=== PATIENT | female | born 1965 | race Caucasian/White ===

== ENCOUNTER → 2017-04-27 | Outpatient (CLI) | payer OTHER ==
[2015-05-17 17:24] VITALS: BP 156/82
--- NOTE | 2017-04-27 12:25 | RAD ---
DATE: 04/27/2017. EXAM: DIGITAL SCREEN BILAT W/CAD. HISTORY: Routine mammographic screening. COMPARISON: 01/27/2016, 01/19/2015, 03/04/2014. This study was interpreted with the benefit of Computerized Aided Detection (CAD). FINDINGS: The breast parenchyma is dense, which could reduce sensitivity of mammography. Breast parenchyma level density D.. The previously noted left inferior breast mass demonstrated to be a cyst has decreased in size consistent with a benign finding. A density just medial to it was previously obscured but appears stable. There are no suspicious masses, microcalcifications or architectural distortion. BI-RADS CATEGORY: 2 BENIGN FINDING(S). RECOMMENDED FOLLOW-UP: 12M 12 MONTH FOLLOW-UP. PQRS compliance statement: Patient information was entered into a reminder system with a target due date 04/27/2018 for the next mammogram. Mammography is a sensitive method for finding small breast cancers, but it does not detect them all and is not a substitute for careful clinical examination. A negative mammogram does not negate a clinically suspicious finding and should not result in delay in biopsying a clinically suspicious abnormality. "Our facility is accredited by the [employer] Mammography [employer]."
== END | disposition home or self-care (01) ==
LOC: MAMMO 08:02
PROVIDERS: ATTEND Obstetrics & Gynecology
DX: Z12.31 Encounter for screening mammogram for malignant neoplasm of breast (principal); Z01.419 Encounter for gynecological examination (general) (routine) without abnormal findings; N63.0 Unspecified lump in unspecified breast
CPT/HCPCS: G0202; 77067

== ENCOUNTER 2017-11-09 18:34 | Emergency (ER) | payer OTHER ==
[2017-11-09 19:10] LABS: ADD MAN DIFF? NO
[2017-11-09 19:12] LABS: BASO # 0.1 x10^3/uL (0.0-0.2); BASO % 1 % (0-3); EOS # 0.1 x10^3/uL (0.0-0.7); EOS % 1 % (0-3); HEMATOCRIT 43.2 % (36.0-47.0); HEMOGLOBIN 14.9 g/dL (12.0-15.5); LYMPH # 2.3 x10^3/uL (1.0-4.8); LYMPH % 25 % (24-48); MEAN CORPUSCULAR HEMOGLOBIN 31 pg (25-35); MEAN CORPUSCULAR HGB CONC 35 g/dL (31-37); MEAN CORPUSCULAR VOLUME 89 fL (79-100); MONO # 0.6 x10^3/uL (0.0-1.1); MONO % 6 % (0-9); NEUT % 67 % (31-73); PLATELET COUNT 220 x10^3/uL (140-400); RED BLOOD COUNT 4.83 x10^6/uL (3.50-5.40); RED CELL DISTRIBUTION WIDTH 13.4 % (11.5-14.5)
[2017-11-09 19:15] LABS: BILIRUBIN,URINE NEGATIVE (NEG); CLARITY,URINE CLEAR; COLOR,URINE YELLOW; GLUCOSE,URINE NEGATIVE (NEG); NITRITE,URINE NEGATIVE (NEG); PROTEIN,URINE NEGATIVE (NEG-TRACE); UROBILINOGEN,URINE 0.2 mg/dL (0.2 mg/dL)
[2017-11-09 19:17] LABS: BACTERIA,URINE 0 /HPF (0-FEW); SQUAMOUS EPITHELIAL CELL,UR FEW /LPF; WBC,URINE OCC /HPF (0-4)
[2017-11-09 19:20] LABS: BARBITURATES NEG (NEG); BENZODIAZEPINES NEG (NEG); CANNABINOIDS NEG (NEG); COCAINE NEG (NEG); METHADONE NEG (NEG); OPIATES POS (NEG); PHENCYCLIDINE NEG (NEG)
[2017-11-09 19:21] LABS: AMPHETAMINE/METHAMPHETAMINE NEG (NEG); ETHANOL, URINE NEG (NEG)
[2017-11-09] MEDS: IV NORMAL SALINE 1000ML BAG 1,000 ML IV (19:21)
[2017-11-09 19:22] LABS: ANION GAP 9 (6-14); BLOOD UREA NITROGEN 12 mg/dL (7-20); BUN/CREATININE RATIO 15 (6-20); CALCIUM 8.4 mg/dL (8.5-10.1); CARBON DIOXIDE 29 mmol/L (21-32); CHLORIDE 103 mmol/L (98-107); CREATININE 0.8 mg/dL (0.6-1.0); GLUCOSE 91 mg/dL (70-99); POTASSIUM 3.4 mmol/L (3.5-5.1); SODIUM 141 mmol/L (136-145)
[2017-11-09] MEDS: MORPHINE SULFATE 4 MG/ML DISP.SYRIN. IV (19:22)
[2017-11-09] MEDS: ONDANSETRON PF 4 MG/2 ML VIAL. IV (19:22)
[2017-11-09 19:24] LABS: ETHANOL < 10 mg/dL (0-10)
[2017-11-09 19:30] LABS: ALBUMIN/GLOBULIN RATIO 1.1 (1.0-1.7); ALK PHOS 88 U/L (46-116); ALT (SGPT) 25 U/L (14-59); AST (SGOT) 21 U/L (15-37); LIPASE 84 U/L (73-393); TOTAL BILIRUBIN 0.5 mg/dL (0.2-1.0); TOTAL PROTEIN 7.8 g/dL (6.4-8.2)
[2017-11-09] MEDS: MORPHINE SULFATE 2 MG/ML DISP.SYRIN. IV (21:00)
[2017-11-09] MEDS: KETOROLAC 30 MG/ML INJ. IV (21:35)
[2017-11-09] MEDS: KETOROLAC 60 MG/2 ML INJ. IM (21:51)
== END 2017-11-09 22:10 | disposition home or self-care (01) ==
LOC: ER 18:34
DX: N20.0 Calculus of kidney (principal); Z87.442 Personal history of urinary calculi; Z90.710 Acquired absence of both cervix and uterus; Z90.721 Acquired absence of ovaries, unilateral; Z88.2 Allergy status to sulfonamides
CPT/HCPCS: 36415; 74176; 76830; 76856; 80053; 80307; 81001; 83690; 85025; 96372; 96374; 96375; 99285-25; G0480; J1885; J2270; J2405; J7030

== ENCOUNTER → 2018-04-30 | Outpatient (CLI) | payer OTHER ==
[2017-11-09 20:30] VITALS: BP 178/83
[~2018-04-30] MED LIST: OXYC-323 PO
--- NOTE | 2018-04-30 08:51 | RAD ---
DATE: 04/30/2018 EXAM: MAMMO CHUNG SCREENING BILATERAL HISTORY: Routine screening COMPARISON: 04/27/2017 This study was interpreted with the benefit of Computerized Aided Detection (CAD). Breast Density: HETERO The breast parenchyma is heterogenously dense, which could reduce sensitivity of mammography. Breast parenchyma level C. FINDINGS: 2-D and 3-D tomosynthesis imaging was performed in CC and MLO projections. A known cyst in the lateral aspect left breast has decreased in size. There are couple of other small smooth nodules in the left breast which are presumably cysts. These are better visualized on the current 3-D images than on the previous CT exam. No spiculated mass or architectural distortion is evident. No suspicious microcalcifications have developed. IMPRESSION: There is no mammographic evidence of malignancy in either breast. BI-RADS CATEGORY: 2 BENIGN FINDING(S) RECOMMENDED FOLLOW-UP: 12M 12 MONTH FOLLOW-UP PQRS compliance statement: Patient information was entered into a reminder system with a target due date for the next mammogram. Mammography is a sensitive method for finding small breast cancers, but it does not detect them all and is not a substitute for careful clinical examination. A negative mammogram does not negate a clinically suspicious finding and should not result in delay in biopsying a clinically suspicious abnormality. "Our facility is accredited by the [employer]ammography [employer]."
== END | disposition home or self-care (01) ==
LOC: MAMMO 08:04
PROVIDERS: ATTEND Obstetrics & Gynecology
DX: Z12.31 Encounter for screening mammogram for malignant neoplasm of breast (principal)
CPT/HCPCS: 77063; 77067

== ENCOUNTER → 2019-03-12 | Outpatient (CLI) | payer OTHER ==
[2017-11-09 20:30] VITALS: BP 178/83
[~2019-03-12] MED LIST changes: -OXYC-323 PO; +OXYC1TAB15 PO
[2019-03-12 16:22] LABS: BASO # 0.1 x10^3/uL (0.0-0.2); BASO % 1 % (0-3); EOS # 0.2 x10^3/uL (0.0-0.7); EOS % 2 % (0-3); HEMATOCRIT 39.8 % (36.0-47.0); HEMOGLOBIN 13.2 g/dL (12.0-15.5); LYMPH % 26 % (24-48); MEAN CORPUSCULAR HEMOGLOBIN 30 pg (25-35); MEAN CORPUSCULAR HGB CONC 33 g/dL (31-37); MEAN CORPUSCULAR VOLUME 89 fL (79-100); MONO # 0.6 x10^3/uL (0.0-1.1); MONO % 7 % (0-9); NEUT % 64 % (31-73); PLATELET COUNT 203 x10^3/uL (140-400); RED BLOOD COUNT 4.46 x10^6/uL (3.50-5.40); RED CELL DISTRIBUTION WIDTH 13.2 % (11.5-14.5); WHITE BLOOD COUNT 7.9 x10^3/uL (4.0-11.0)
== END | disposition home or self-care (01) ==
LOC: LAB 15:51
PROVIDERS: ATTEND Internal Medicine
DX: B34.9 Viral infection, unspecified (principal); R10.9 Unspecified abdominal pain
CPT/HCPCS: 36415; 85025

== ENCOUNTER → 2019-05-16 | Outpatient (CLI) | payer OTHER ==
[2017-11-09 20:30] VITALS: BP 178/83
--- NOTE | 2019-05-17 10:36 | RAD ---
DATE: May 16, 2019 EXAM: MAMMO CHUNG SCREENING BILATERAL HISTORY: Screening study. History of left cysts. COMPARISON: 2016 and 2018 This study was interpreted with the benefit of Computerized Aided Detection (CAD). FINDINGS: Breast Density: HETERO The breast parenchyma is heterogenously dense, which could reduce sensitivity of mammography. Breast parenchyma level C.. There are no new dominant suspicious masses, suspicious microcalcifications or evidence of architectural distortion. Bilateral breast nodules consistent with cysts are stable. IMPRESSION: No mammographic indicators for malignancy. BI-RADS CATEGORY: 2 BENIGN FINDING RECOMMENDED FOLLOW-UP: 12M 12 MONTH FOLLOW-UP PQRS compliance statement: Patient information was entered into a reminder system with a target due date May 17, 2020 for the next mammogram. Mammography is a sensitive method for finding small breast cancers, but it does not detect them all and is not a substitute for careful clinical examination. A negative mammogram does not negate a clinically suspicious finding and should not result in delay in biopsying a clinically suspicious abnormality. "Our facility is accredited by the [employer] Mammography [employer]." The patient's breast density may affect the ability of mammography to detect breast cancer. There are 4 categories of breast density, A, B, C and D. Breast density A means that most of the breast tissue is replaced with adipose tissue and therefore is not dense. Breast density B means that the breast tissue is mildly dense and scattered. Breast density C means that the breast tissue is heterogeneously dense. Breast density D means that the breast tissue is very dense. Breast densities especially C and D may decrease the sensitivity of mammography to detect breast cancer. Therefore, the patient may benefit from 3-D breast mammography (3D breast tomography) as a part of their screening mammogram. Insurance may or may not pay for this additional imaging. The patient's breast density based on today's mammogram is category C.
== END | disposition home or self-care (01) ==
LOC: MAMMO 08:07
PROVIDERS: ATTEND Obstetrics & Gynecology
DX: Z12.31 Encounter for screening mammogram for malignant neoplasm of breast (principal); N63.20 Unspecified lump in the left breast, unspecified quadrant; N63.10 Unspecified lump in the right breast, unspecified quadrant
CPT/HCPCS: 77063; 77067

== ENCOUNTER → 2019-08-20 | Outpatient (CLI) | payer OTHER ==
[2017-11-09 20:30] VITALS: BP 178/83
[2019-08-20 09:04] LABS: BASO % 1 % (0-3); EOS # 0.2 x10^3/uL (0.0-0.7); EOS % 3 % (0-3); HEMATOCRIT 44.9 % (36.0-47.0); HEMOGLOBIN 14.7 g/dL (12.0-15.5); LYMPH % 31 % (24-48); MEAN CORPUSCULAR HEMOGLOBIN 29 pg (25-35); MEAN CORPUSCULAR HGB CONC 33 g/dL (31-37); MEAN CORPUSCULAR VOLUME 89 fL (79-100); MONO # 0.5 x10^3/uL (0.0-1.1); MONO % 7 % (0-9); NEUT # 3.8 x10^3/uL (1.8-7.7); NEUT % 59 % (31-73); PLATELET COUNT 219 x10^3/uL (140-400); RED BLOOD COUNT 5.04 x10^6/uL (3.50-5.40); RED CELL DISTRIBUTION WIDTH 13.5 % (11.5-14.5); WHITE BLOOD COUNT 6.5 x10^3/uL (4.0-11.0)
[2019-08-20 09:36] LABS: ALBUMIN 4.1 g/dL (3.4-5.0); ALBUMIN/GLOBULIN RATIO 1.1 (1.0-1.7); CALCIUM 8.9 mg/dL (8.5-10.1); CREATININE 0.8 mg/dL (0.6-1.0); GFR 74.5; MAGNESIUM 2.1 mg/dL (1.8-2.4); POTASSIUM 4.1 mmol/L (3.5-5.1); TOTAL BILIRUBIN 0.4 mg/dL (0.2-1.0); TOTAL PROTEIN 7.7 g/dL (6.4-8.2)
[2019-08-20 09:38] LABS: FREE T4 1.04 ng/dL (0.76-1.46); THYROID STIM HORMONE (TSH) 3.708 uIU/mL (0.358-3.74)
[2019-08-20 20:08] LABS: PROGESTERONE 0.2 ng/mL (.)
[2019-08-20 23:08] LABS: HEMOGLOBIN A1C 5.7 % (4.8-5.6)
[2019-08-22 10:22] LABS: CHOLESTEROL/HDL RATIO 4.7
[2019-08-24 09:10] LABS: TESTOSTERONE FREE 1.13 ng/dL (0.10-0.85)
== END | disposition home or self-care (01) ==
LOC: LAB 08:34
PROVIDERS: ATTEND Obstetrics & Gynecology
DX: Z13.220 Encounter for screening for lipoid disorders (principal); Z13.1 Encounter for screening for diabetes mellitus; Z78.0 Asymptomatic menopausal state; Z79.899 Other long term (current) drug therapy
CPT/HCPCS: 36415; 80053; 80061; 82670; 83036; 83735; 84144; 84402; 84403; 84439; 84443; 85025

== ENCOUNTER → 2019-09-11 | Outpatient (CLI) | payer OTHER ==
[2017-11-09 20:30] VITALS: BP 178/83
== END ==
LOC: LAB 16:04
PROVIDERS: ATTEND Obstetrics & Gynecology
DX: R30.0 Dysuria (principal)
CPT/HCPCS: 87086

== ENCOUNTER → 2019-10-18 | Outpatient (CLI) | payer OTHER ==
[2017-11-09 20:30] VITALS: BP 178/83
== END ==
LOC: LAB 10:05
PROVIDERS: ATTEND Obstetrics & Gynecology
DX: R10.2 Pelvic and perineal pain (principal)
CPT/HCPCS: 87086; 87186

== ENCOUNTER 2019-11-04 18:32 | Emergency (ER) | payer OTHER ==
[~2019-11-04] VITALS: Ht 170.2 cm; Wt 78.6 kg
[2019-11-04] MEDS ORDERED: IV NORMAL SALINE 1000ML BAG 1,000 ML IV SCH (18:52)
--- NOTE | 2019-11-04 18:59 | PHYS DOC ---
Past Medical History Past Medical History: No Pertinent History Past Surgical History: Hysterectomy, Oophorectomy Additional Past Surgical Histo: ORIF L HUMERUS, R HAND REVACULARIZATION Smoking Status: Never Smoker Alcohol Use: Rarely Drug Use: None General Adult EDM: Chief Complaint: ABDOMINAL PAIN HPI: HPI: Patient is a 54 year old female who presents with complaint of left lower quadrant abdominal pain that started earlier this afternoon. Patient states that pain has progressively gotten worse and she now rates it at an 8 out of 10. She states that she has had some nausea but no vomiting. She denies any diarrhea. Patient also indicates that she injured her right wrist while coming in, stating that her wrist was accidentally slammed by the trunk of the car. Patient denies any other injuries. Patient states that nothing is improving her pain.[] Review of Systems: Review of Systems: Constitutional: Denies fever or chills. [] Respiratory: Denies cough or shortness of breath. [] Cardiovascular: Denies chest pain or edema. [] GI: Complains of abdominal pain with nausea. Denies vomiting or diarrhea. [] Integument: Denies rash. [] Neurologic: Denies headache, focal weakness or sensory changes. [] A full 10 point review of systems has been reviewed and is otherwise negative. Heart Score: Risk Factors: Risk Factors: DM, Current or recent (<one month) smoker, HTN, HLP, family history of CAD, obesity. Risk Scores: Score 0 - 3: 2.5% MACE over next 6 weeks - Discharge Home Score 4 - 6: 20.3% MACE over next 6 weeks - Admit for Clinical Observation Score 7 - 10: 72.7% MACE over next 6 weeks - Early Invasive Strategies Current Medications: Current Medications Medications (Trade) Dose Ordered Sig/Bandar Start Time Stop Time Status Last Admin Dose Admin Fentanyl Citrate (Fentanyl 2ml Vial) 50 mcg PRN Q15MIN PRN 11/04/19 19:00 11/05/19 18:59 UNV Ondansetron HCl (Zofran) 4 mg 1X ONCE 11/04/19 19:00 11/04/19 19:01 UNV Sodium Chloride 1,000 ml @ 1,000 mls/hr Q1H 11/04/19 18:52 11/04/19 19:51 UNV Allergies: Allergies: Allergies Coded Allergies Type Severity Reaction Last Updated Verified Sulfa (Sulfonamide Antibiotics) Allergy Intermediate Hives 11/15/13 Yes Physical Exam: PE: Constitutional: Well developed, well nourished, no acute distress, non-toxic appearance. [] HENT: Normocephalic, atraumatic, bilateral external ears normal, oropharynx moist, no oral exudates, nose normal. [] Eyes: PERRLA, EOMI, conjunctiva normal, no discharge. [] Neck: Normal range of motion, no tenderness, supple, no stridor. [] Cardiovascular: Regular rate and rhythm[] Lungs & Thorax: Bilateral breath sounds clear to auscultation [] Abdomen: Bowel sounds normal, soft, with moderate left lower quadrant tenderness. [] Skin: Warm, dry, no erythema, no rash. [] Extremities: No tenderness, no cyanosis, no clubbing, ROM intact, no edema. [] Neurologic: Alert and oriented X 3, no focal deficits noted. [] EKG: EKG: [] Radiology/Procedures: Radiology/Procedures: [] Impression: PROCEDURE: WRIST 3V RIGHT Exam: Right wrist 3 views INDICATION: Crush injury TECHNIQUE: Frontal, lateral and oblique views of the right wrist Comparisons: None FINDINGS: Several soft tissue clips noted along the dorsal aspect of the hand. Bone mineralization is normal. No acute or healed fractures. Joint spaces are well-maintained. IMPRESSION: No acute osseous abnormality. Electronically signed by: Joon Almazan MD (11/04/2019 7:22 PM) [id number] PROCEDURE: CT ABD PELV W/ IV CONTRST ONLY Exam: CT of abdomen and pelvis with contrast INDICATION: Left lower quadrant abdominal pain TECHNIQUE: Sequential axial images through the abdomen and pelvis obtained following the administration of 70 mL of Isovue 370 IV contrast. Sagittal and coronal reformatted images were reconstructed from the axial data and reviewed. Comparisons: None FINDINGS: Heart size is normal. No pericardial effusion. Visualized lung bases are clear. No pleural effusion. Liver, spleen, pancreas, gallbladder and adrenals are unremarkable. No perinephric inflammation or hydronephrosis. Kidneys demonstrate symmetric enhancement. Several nonobstructing left renal calculi are noted. No ureteral calculi are identified. Bladder is partially distended and appears thin-walled. Uterus is absent. No abnormal adnexal mass. Visualized upper abdomen is unremarkable. No free intra-abdominal air or fluid. No obstruction. Appendix is normal. No free intra-abdominal air or fluid. Abdominal aorta has a normal course and caliber. Abdominal vasculature is patent. No enlarged abdominal lymph nodes are identified. No suspicious osseous lesions or acute fractures. IMPRESSION: Several nonobstructing left renal calculi. No ureteral calculi or evidence for obstructive uropathy. Exposure: One or more of the following in the visualized dose reduction techniques were utilized for this examination: 1. Automated exposure control 2. Adjustment of the MA and/or KV according to patient size 3. Use of iterative of reconstructive technique Electronically signed by: Joon Almazan MD (11/04/2019 8:06 PM) [id number] DICTATED and SIGNED BY: JOON ALMAZAN MD DATE: 11/04/192005 PROCEDURE: PELVIS ULTRASOUND Pelvic ultrasound 11/04/2019 CLINICAL HISTORY: Left pelvic pain. TECHNIQUE: Using the distended urinary bladder as a sonographic window, a real-time ultrasound examination of the pelvis was performed. Multiple images were obtained. FINDINGS: The uterus is not visualized consistent with the patient's history of a hysterectomy. The right ovary is not visualized consistent with the patient's history of a right oophorectomy. The left ovary is normal in size and echogenicity. It measures 2.4 x 1.9 x 1.3 cm in size. No adnexal mass is seen. No free fluid is noted. IMPRESSION: Negative postsurgical pelvic ultrasound. Electronically signed by: Vince Burt MD (11/04/2019 10:18 PM) [id number] Course & Med Decision Making: Course & Med Decision Making Pertinent Labs and Imaging studies reviewed. (See chart for details) [] Dragon Disclaimer: Dragon Disclaimer: This electronic medical record was generated, in whole or in part, using a voice recognition dictation system. Departure Departure Impression: Primary Impression: Left lower quadrant abdominal pain Additional Impression: Contusion of right wrist Qualified Codes: S60.211A - Contusion of right wrist, initial encounter Disposition: 01 HOME, SELF-CARE Condition: STABLE Referrals: JOSEPH MCCARTHY MD (PCP) Patient Instructions: Abdominal Pain, Contusion, Diverticulitis Scripts Hydrocodone/Apap 5-325 (NORCO 5-325 TABLET) 1 Each Tablet 1-2 EACH PO PRN Q6HRS PRN for PAIN, #15 as needed for pain Prov: NEY WEI Jr. DO 11/04/19 Ondansetron (ONDANSETRON ODT) 4 Mg Tab.rapdis 1 TAB PO PRN Q6-8HRS PRN for NAUSEA, #15 TAB Prov: NEY WEI Jr. DO 11/04/19 Metronidazole (FLAGYL) 500 Mg Tablet 1 TAB PO TID, #30 TAB Prov: NEY WEI Jr. DO 11/04/19 NEY WEI Jr. DO Nov 04, 2019 18:59
[2019-11-04 19:00] LABS: BILIRUBIN,URINE NEGATIVE (NEG); CLARITY,URINE CLEAR; COLOR,URINE YELLOW; NITRITE,URINE NEGATIVE (NEG); PROTEIN,URINE NEGATIVE (NEG-TRACE); UROBILINOGEN,URINE 0.2 mg/dL (0.2 mg/dL)
[2019-11-04] MEDS ORDERED: fentaNYL PF VIAL 100 MCG/2 ML VIAL IV PRN (19:00)
[2019-11-04] MEDS ORDERED: ONDANSETRON PF 4 MG/2 ML VIAL. IVP ONE (19:00)
[2019-11-04 19:04] LABS: BACTERIA,URINE 0 /HPF (0-FEW); SQUAMOUS EPITHELIAL CELL,UR FEW /LPF; WBC,URINE 0 /HPF (0-4)
[2019-11-04 19:24] LABS: BASO # 0.1 x10^3/uL (0.0-0.2); BASO % 1 % (0-3); EOS # 0.2 x10^3/uL (0.0-0.7); EOS % 2 % (0-3); HEMATOCRIT 43.7 % (36.0-47.0); HEMOGLOBIN 14.1 g/dL (12.0-15.5); LYMPH # 2.3 x10^3/uL (1.0-4.8); LYMPH % 25 % (24-48); MEAN CORPUSCULAR HEMOGLOBIN 28 pg (25-35); MEAN CORPUSCULAR HGB CONC 32 g/dL (31-37); MEAN CORPUSCULAR VOLUME 87 fL (79-100); MONO # 0.7 x10^3/uL (0.0-1.1); MONO % 7 % (0-9); NEUT # 6.1 x10^3/uL (1.8-7.7); NEUT % 66 % (31-73); PLATELET COUNT 256 x10^3/uL (140-400); RED BLOOD COUNT 5.03 x10^6/uL (3.50-5.40); RED CELL DISTRIBUTION WIDTH 14.3 % (11.5-14.5); WHITE BLOOD COUNT 9.3 x10^3/uL (4.0-11.0)
--- NOTE | 2019-11-04 19:25 | RAD ---
Exam: Right wrist 3 views INDICATION: Crush injury TECHNIQUE: Frontal, lateral and oblique views of the right wrist Comparisons: None FINDINGS: Several soft tissue clips noted along the dorsal aspect of the hand. Bone mineralization is normal. No acute or healed fractures. Joint spaces are well-maintained. IMPRESSION: No acute osseous abnormality. Electronically signed by: Joon Levine MD (11/04/2019 7:22 PM) [id number]
[2019-11-04 19:32] LABS: CALCIUM 8.9 mg/dL (8.5-10.1); CREATININE 0.9 mg/dL (0.6-1.0); POTASSIUM 3.4 mmol/L (3.5-5.1)
[2019-11-04 19:38] LABS: ALBUMIN 4.2 g/dL (3.4-5.0); ALBUMIN/GLOBULIN RATIO 1.2 (1.0-1.7); TOTAL BILIRUBIN 0.3 mg/dL (0.2-1.0); TOTAL PROTEIN 7.6 g/dL (6.4-8.2)
[2019-11-04] MEDS ORDERED: IOHEXOL 300 MG/ML 100ML VIAL. IV ONE (19:45)
[2019-11-04] MEDS ORDERED: CONTRAST GIVEN. MC PRN (19:45)
--- NOTE | 2019-11-04 20:09 | RAD ---
Exam: CT of abdomen and pelvis with contrast INDICATION: Left lower quadrant abdominal pain TECHNIQUE: Sequential axial images through the abdomen and pelvis obtained following the administration of 70 mL of Isovue 370 IV contrast. Sagittal and coronal reformatted images were reconstructed from the axial data and reviewed. Comparisons: None FINDINGS: Heart size is normal. No pericardial effusion. Visualized lung bases are clear. No pleural effusion. Liver, spleen, pancreas, gallbladder and adrenals are unremarkable. No perinephric inflammation or hydronephrosis. Kidneys demonstrate symmetric enhancement. Several nonobstructing left renal calculi are noted. No ureteral calculi are identified. Bladder is partially distended and appears thin-walled. Uterus is absent. No abnormal adnexal mass. Visualized upper abdomen is unremarkable. No free intra-abdominal air or fluid. No obstruction. Appendix is normal. No free intra-abdominal air or fluid. Abdominal aorta has a normal course and caliber. Abdominal vasculature is patent. No enlarged abdominal lymph nodes are identified. No suspicious osseous lesions or acute fractures. IMPRESSION: Several nonobstructing left renal calculi. No ureteral calculi or evidence for obstructive uropathy. Exposure: One or more of the following in the visualized dose reduction techniques were utilized for this examination: 1. Automated exposure control 2. Adjustment of the MA and/or KV according to patient size 3. Use of iterative of reconstructive technique Electronically signed by: Joon Levine MD (11/04/2019 8:06 PM) [id number]
[2019-11-04] MEDS ORDERED: IV NORMAL SALINE 1000ML BAG 1,000 ML IV ONE (20:30)
--- NOTE | 2019-11-04 22:21 | RAD ---
Pelvic ultrasound 11/04/2019 CLINICAL HISTORY: Left pelvic pain. TECHNIQUE: Using the distended urinary bladder as a sonographic window, a real-time ultrasound examination of the pelvis was performed. Multiple images were obtained. FINDINGS: The uterus is not visualized consistent with the patient's history of a hysterectomy. The right ovary is not visualized consistent with the patient's history of a right oophorectomy. The left ovary is normal in size and echogenicity. It measures 2.4 x 1.9 x 1.3 cm in size. No adnexal mass is seen. No free fluid is noted. IMPRESSION: Negative postsurgical pelvic ultrasound. Electronically signed by: Vince Burt MD (11/04/2019 10:18 PM) [id number]
[2019-11-04] MEDS ORDERED: METR500T PO (22:31)
[2019-11-04] MEDS ORDERED: ONDA4TAB12 PO (22:31)
[2019-11-04] MEDS ORDERED: HYDR-3164 PO (22:31)
[2019-11-04 22:40] VITALS: BP 165/83
== END 2019-11-04 22:50 | disposition home or self-care (01) ==
LOC: ER 18:32
DX: S60.211A Contusion of right wrist, initial encounter (principal); R10.32 Left lower quadrant pain; Z88.2 Allergy status to sulfonamides; W22.8XXA Striking against or struck by other objects, initial encounter; Y93.89 Activity, other specified; Y92.89 Other specified places as the place of occurrence of the external cause; Y99.8 Other external cause status
CPT/HCPCS: 36415; 73110; 74177; 76856; 80053; 81001; 83690; 85025; 96374; 96375; 99285; J2405; J3010; J7030; Q9967

== ENCOUNTER → 2019-12-12 | Outpatient (CLI) | payer OTHER ==
[~2019-12-12] MED LIST changes: +HYDR-3164 PO; +METR500T PO; +OMEP20CA16 PO; +ONDA4TAB12 PO
== END | disposition home or self-care (01) ==
LOC: LAB 11:35
PROVIDERS: ATTEND Internal Medicine Gastroenterology
DX: Z11.59 Encounter for screening for other viral diseases (principal)
CPT/HCPCS: C9803; U0003

== ENCOUNTER → 2019-12-16 | Day surgery (SDC) | payer OTHER ==
[~2019-12-16] MED LIST changes: +IV RINGERS,LACTATED 1000ML 1,000 ML IV ONE; +LIDOCAINE 2% PF 5 ML VIAL. ONE; +PROPOFOL 10 MG/ML (20ML) VIAL. IV ONE
--- NOTE | 2019-12-16 15:22 | PDOC4 ---
PROCEDURE Procedure EGD/colonoscopy Indication: Dyspepsia/LLQ pain Meds: per anesthesia Findings: E--Healing, maybe grade A-B esophagitis at 40cm G--Normal D--Normal to second portion. RODDY: normal --'Scope advanced to cecum. Prep good. Mucosa normal. Scattered diverticula, sigmoid. No polyps, masses, avm's. Internal hemorrhoids on retroflex. Xavier. well. IMP: GERD Diverticulosis Internal hemorrhoids. REC: Continue PPI, fiber. Consider repeat colonoscopy in 10 years. F/u with me in 2 weeks. JOSEPH DIMAS MD Dec 16, 2019 15:22
[2019-12-16 15:41] VITALS: BP 146/81
== END ==
LOC: ENDOS 14:11
PROVIDERS: ATTEND Internal Medicine Gastroenterology
DX: R10.32 Left lower quadrant pain (principal); K57.30 Diverticulosis of large intestine without perforation or abscess without bleeding; K21.0 Gastro-esophageal reflux disease with esophagitis; K64.0 First degree hemorrhoids; F15.90 Other stimulant use, unspecified, uncomplicated; Z88.1 Allergy status to other antibiotic agents; Z72.89 Other problems related to lifestyle
CPT/HCPCS: 43235; 45378; J2704; J3490

== ENCOUNTER → 2020-04-28 | Outpatient (CLI) | payer OTHER ==
[2019-12-16 15:41] VITALS: BP 146/81
[~2020-04-28] MED LIST changes: -IV RINGERS,LACTATED 1000ML 1,000 ML IV ONE; -LIDOCAINE 2% PF 5 ML VIAL. ONE; -PROPOFOL 10 MG/ML (20ML) VIAL. IV ONE
== END ==
LOC: LAB 10:12
PROVIDERS: ATTEND Internal Medicine Pulmonary Disease
DX: U07.1 COVID-19 (principal)
CPT/HCPCS: U0003-CS

== ENCOUNTER → 2020-05-20 | Outpatient (CLI) | payer OTHER ==
[2019-12-16 15:41] VITALS: BP 146/81
--- NOTE | 2020-05-26 16:11 | RAD ---
DATE: 05/20/2020 8:30 AM EXAM: MAMMO CHUNG SCREENING BILATERAL HISTORY: Screening COMPARISON: 04/30/2018, 05/16/2019 Bilateral CC and MLO views of the breasts were performed. Bilateral breast tomosynthesis was performed in CC and MLO projections. Bilateral XCCL views were also obtained. This study was interpreted with the benefit of Computerized Aided Detection (CAD). FINDINGS: Breast Density: HETERO The breast parenchyma Is heterogeneously dense, which could reduce sensitivity of mammography. Breast parenchyma level C No suspicious masses, microcalcifications or architectural distortion is present to suggest malignancy in either breast. The visualized axillae are unremarkable. IMPRESSION: No mammographic evidence of malignancy. BI-RADS CATEGORY: 1 NEGATIVE RECOMMENDED FOLLOW-UP: 12M 12 MONTH FOLLOW-UP Annual screening mammography is recommended, unless clinically indicated sooner based on symptoms or change in physical exam. PQRS compliance statement: Patient information was entered into a reminder system with a target due date for the next mammogram. Mammography is a sensitive method for finding small breast cancers, but it does not detect them all and is not a substitute for careful clinical examination. A negative mammogram does not negate a clinically suspicious finding and should not result in delay in biopsying a clinically suspicious abnormality. "Our facility is accredited by the [employer] Mammography Program."
== END ==
LOC: MAMMO 08:27
PROVIDERS: ATTEND Obstetrics & Gynecology
DX: Z12.31 Encounter for screening mammogram for malignant neoplasm of breast (principal)
CPT/HCPCS: 77063; 77067

== ENCOUNTER 2020-06-09 17:02 | Emergency (ER) | payer OTHER ==
[~2020-06-09] VITALS: Ht 170.2 cm; Wt 75.9 kg
--- NOTE | 2020-06-09 18:31 | PHYS DOC ---
Past Medical History Past Medical History: No Pertinent History Past Surgical History: Hysterectomy, Oophorectomy Additional Past Surgical Histo: ORIF L HUMERUS, R HAND REVACULARIZATION Smoking Status: Never Smoker Alcohol Use: Rarely Drug Use: None General Adult EDM: Chief Complaint: ABDOMINAL PAIN HPI: HPI: 54 yo F past medical history of diverticula and frequent UTIs, presents to the ED with complaints of " I have a UTI again," described as suprapubic pressure and " bladder spasms," associated fever and chills but no documented fever. Patient denies any associated nausea, vomiting, hematuria, abnormal vaginal odor, or vaginal discharge (is not concern for any sexually transmitted infections). History of adenomyosis with hysterectomy and right salpingo- oophorectomy. Reports she has history of frequent UTIs and cannot take Bactrim due to sulfa allergy. States her last UTI took 3 months to resolve. Is currently on omeprazole for the past [address] Qureshi, GI after patient had an EGD and colonoscopy 2 months ago that showed GERD and diverticula. GI studies performed due to history of left lower quadrant pain with a normal left ovary and sigmoid colon inflammation. Primary care physician is Dr. Guzman. Patient does report some left flank pain but states this is mild. Says she has a history of kidney stones on the left side but the pain is not radiating and declines offer for ultrasound or CT to pursue nephrolithiasis, states "pain is mild, imaging is too much." H/o pyelonephritis in and she states, "this isn't like that." Review of Systems: Review of Systems: Constitutional: Denies diaphoresis, fatigue Eyes: Denies change in visual acuity. [] HENT: Denies nasal congestion or sore throat. [] Respiratory: Denies cough or shortness of breath. [] Cardiovascular: Denies chest pain or edema. [] GI: Denies abdominal pain, nausea, vomiting, bloody stools or diarrhea. [] : Denies dysuria. [] Musculoskeletal: Denies joint pain/swelling Integument: Denies rash. [] Neurologic: Denies headache, neck stiffness focal weakness or sensory changes. [] Endocrine: Denies polyuria or polydipsia. [] Lymphatic: Denies swollen glands. [] Psychiatric: Denies depression or anxiety. [] Heart Score: Risk Factors: Risk Factors: DM, Current or recent (<one month) smoker, HTN, HLP, family history of CAD, obesity. Risk Scores: Score 0 - 3: 2.5% MACE over next 6 weeks - Discharge Home Score 4 - 6: 20.3% MACE over next 6 weeks - Admit for Clinical Observation Score 7 - 10: 72.7% MACE over next 6 weeks - Early Invasive Strategies Allergies: Allergies: Allergies Coded Allergies Type Severity Reaction Last Updated Verified Sulfa (Sulfonamide Antibiotics) Allergy Intermediate Hives 12/16/19 Yes Physical Exam: PE: Constitutional: Well developed, well nourished, no acute distress, non-toxic appearance, HS stable HENT: Normocephalic, atraumatic, Eyes: EOMI, conjunctiva normal, no discharge. Neck: Normal range of motion, supple, Cardiovascular: S1/2 present, regular rhythm Lungs & Thorax: Speaking in full sentences, bilateral equal chest rise, no tachypnea or increased work of breathing Abdomen: soft, no tenderness, Skin: Warm, dry, no erythema, no rash. [] Back: No tenderness, canoot reproduce L CVA tenderness. [] Extremities: No tenderness, no cyanosis, no edema Neurologic: Alert and oriented X 3, normal motor function, normal sensory function, no focal deficits noted. [] Psychologic: Affect normal, judgement normal, mood normal. [] EKG: EKG: [] Radiology/Procedures: Radiology/Procedures: [] Course & Med Decision Making: Course & Med Decision Making Pertinent Labs and Imaging studies reviewed. (See chart for details) Concern for suprapubic abdominal pain with bladder spasms and left flank pain and hemodynamically stable, afebrile pt. U/A is unremarkable today with few WBCs, no nitrites or leukocyte esterase, no RBCs or blood. EMR was reviewed and patient had a UTI in October 2019 that was E. coli resistant to Bactrim. Her urinalysis in October similar to today's presentation. We will treat symptomatically with Vantin given history of complicated UTI. Strict ED return precautions were given for worsening fever, dehydration with nausea and vomiting, worsening flank pain or flulike symptoms (sepsis/pyelo). Encouraged urgent outpatient follow-up with PMD and urology. Life-threatening processes were considered but are low suspicion at this time, given history and physical exam. Pt was educated on all prescription medications and adverse effects. All patient's questions were answered and pt was stable at time of discharge. Life/limb-threatening differential includes but is not limited to, aortic dissection, aortic aneurysm, acute coronary syndrome, surgical abdomen (appendicitis, cholecystitis, ischemic bowel, strangulated hernia, etc), bowel obstruction or volvulus, bladder outlet obstruction, gastrointestinal bleeding, inflammatory bowel disease, peptic ulcer disease, sepsis, diverticular disease, ureterolithiasis, nephrolithiasis, ovarian torsion, vaginal hemorrhage, or genitourinary infection. I spoken with the patient and her caregivers. I explained the patient's condition, diagnoses and treatment plan based on the information available to me at this time. I have answered the patient and her caregiver's questions and addressed any concerns. The patient and her caregivers have a good understanding of patient's diagnosis, condition and treatment plan as can be expected at this point. Vital signs have been stable. Patient's condition is stable and appropriate for discharge from the emergency department. Patient will pursue further outpatient evaluation with primary care physician or other designated or consulting physician as outlined in the discharge instructions. The patient and/or caregivers are agreeable to this plan of care and follow-up instructions have been explained in detail. The patient and/or caregivers have received these instructions in written form and have expressed an understanding of the discharge instructions. The patient and/or caregivers are aware that any significant change of condition or worsening of symptoms should prompt immediate return to this or the closest emergency department or call to 911. *Pharmacy called and I changed rx to oral tablets, 100 mg bid x7 days* Yazmin Disclaimer: Yazmin Disclaimer: This electronic medical record was generated, in whole or in part, using a voice recognition dictation system. Departure Departure Impression: Primary Impression: Suprapubic discomfort Additional Impression: Dysuria Disposition: 01 DC HOME SELF CARE/HOMELESS Condition: STABLE Referrals: JOSEPH MCCARTHY MD (PCP) in 10-14 days for urinalysis re-check Patient Instructions: Urinary Tract Infection Additional Instructions: FOLLOW UP WITH UROLOGY: [facility] urologists Medical [facility] [address] [place] [address] appointments: [phone] EMERGENCY DEPARTMENT GENERAL DISCHARGE INSTRUCTIONS Thank you for coming to [facility] Emergency Department (ED) today and trusting us with you care. We trust that you had a positive experience in our Emergency Department. If you wish to speak to the department management, you may call the Director at [phone]. YOUR FOLLOW UP INSTRUCTIONS ARE FOLLOWS: 1. Do you have a private Doctor? If you do not have a private doctor, please ask for a resource list of physicians or clinics that may be able to assist you with follow up care. 2. The Emergency Physicain has interpreted your x-rays. The X-Ray specialist will also review them. If there is a change in the findings, you will be notified in 48 hours when at all possible. 3. A lab test or culture has been done, your results will be reviewed and you will be notified if you need a change in treatment. ADDITIONAL INSTRUCTIONS AND INFORMATION: 1. Your care today has been supervised by a physician who is specially trained in emergency care. Many problems require more than one evaluation for a complete diagnosis and treatment. We recommend that you schedule your follow up appointment as recommended to ensure complete treatment of you illness or injury. If you are unable to obtain follow up care and continue to have a problem, or if your condition worsens, we recommend that you return to the ED. 2. We are not able to safely determine your condition over the phone nor are we able to give sound medical advice over the phone. For these safety reasons, if you call for medical advice we will ask you to come to the ED for further evaluation. 3. If you have any questions regarding these discharge instructions please call the ED at [phone]. SAFETY INFORMATION: In the interest of safety, wellness, and injury prevention; we encourage you to wear your sealbelt, if you smoke; quite smoking, and we encourage family to use a protective helmet for bicycling and other sporting events that present an increased risk for head injury. IF YOUR SYMPTOMS WORSEN OR NEW SYMPTOMS DEVELOP, OR YOU HAVE CONCERNS ABOUT YOUR CONDITION; OR IF YOUR CONDITION WORSENS WHILE YOU ARE WAITING FOR YOUR FOLLOW UP A PPOINTMENT; EITHER CONTACT YOUR PRIMARY CARE DOCTOR, THE PHYSICIAN WHOSE NAME AND NUMBER YOU WERE GIVEN, OR RETURN TO THE ED IMMEDIATELY. Scripts Cefpodoxime Proxetil (CEFPODOXIME PROXETIL) 100 Mg/5 Ml Susp.recon 1 TAB PO BID for 7 Days, #14 TAB 0 Refills Prov: ALLIE SANDOVAL DO 06/09/20 Phenazopyridine Hcl (PHENAZOPYRIDINE HCL) 200 Mg Tablet 1 TAB PO TID for urinary discomfort for 3 Days, #9 TAB 0 Refills after food Prov: ALLIE SANDOVAL DO 06/09/20 ALLIE SANDOVAL DO Jun 09, 2020 18:31
[2020-06-09 18:38] LABS: BASO # 0.1 x10^3/uL (0.0-0.2); BASO % 1 % (0-3); EOS # 0.1 x10^3/uL (0.0-0.7); EOS % 1 % (0-3); HEMATOCRIT 40.9 % (36.0-47.0); HEMOGLOBIN 13.2 g/dL (12.0-15.5); LYMPH % 22 % (24-48); MEAN CORPUSCULAR HEMOGLOBIN 27 pg (25-35); MEAN CORPUSCULAR HGB CONC 32 g/dL (31-37); MEAN CORPUSCULAR VOLUME 84 fL (79-100); MONO # 0.6 x10^3/uL (0.0-1.1); MONO % 7 % (0-9); NEUT # 6.3 x10^3/uL (1.8-7.7); NEUT % 70 % (31-73); PLATELET COUNT 243 x10^3/uL (140-400); RED BLOOD COUNT 4.89 x10^6/uL (3.50-5.40); RED CELL DISTRIBUTION WIDTH 14.6 % (11.5-14.5); WHITE BLOOD COUNT 9.1 x10^3/uL (4.0-11.0)
[2020-06-09 18:49] LABS: ANION GAP 8 (6-14); BLOOD UREA NITROGEN 13 mg/dL (7-20); CALCIUM 8.9 mg/dL (8.5-10.1); CARBON DIOXIDE 29 mmol/L (21-32); CHLORIDE 102 mmol/L (98-107); CREATININE 0.9 mg/dL (0.6-1.0); GLUCOSE 90 mg/dL (70-99); POTASSIUM 3.7 mmol/L (3.5-5.1); SODIUM 139 mmol/L (136-145)
[2020-06-09 18:55] LABS: ALBUMIN 4.1 g/dL (3.4-5.0); ALK PHOS 93 U/L (46-116); ALT (SGPT) 22 U/L (14-59); AST (SGOT) 16 U/L (15-37); CREATINE KINASE 121 U/L (26-192); DIRECT BILIRUBIN < 0.1 mg/dL (0.0-0.2); LIPASE 118 U/L (73-393); TOTAL BILIRUBIN 0.2 mg/dL (0.2-1.0); TOTAL PROTEIN 7.7 g/dL (6.4-8.2)
[2020-06-09 19:04] LABS: BILIRUBIN,URINE NEGATIVE (NEG); CLARITY,URINE CLEAR; COLOR,URINE YELLOW; NITRITE,URINE NEGATIVE (NEG); PH,URINE 5.5 (<5.0-8.0); PROTEIN,URINE NEGATIVE (NEG-TRACE); UROBILINOGEN,URINE 0.2 mg/dL (0.2 mg/dL)
[2020-06-09 19:11] LABS: BACTERIA,URINE FEW /HPF (0-FEW)
[2020-06-09] MEDS ORDERED: CEFP100S3 PO (19:21)
[2020-06-09] MEDS ORDERED: PHEN-444 PO (19:21)
[2020-06-09 19:22] VITALS: BP 151/77
== END 2020-06-09 19:30 | disposition home or self-care (01) ==
LOC: ER 17:02
DX: R10.32 Left lower quadrant pain (principal); N32.89 Other specified disorders of bladder; R50.9 Fever, unspecified; R30.0 Dysuria; E86.0 Dehydration; Z90.710 Acquired absence of both cervix and uterus; Z90.89 Acquired absence of other organs; Z98.890 Other specified postprocedural states; Z88.2 Allergy status to sulfonamides
CPT/HCPCS: 36415; 80048; 80076; 81001; 82550; 83690; 85025; 99285

== ENCOUNTER → 2020-06-15 | Outpatient (CLI) | payer OTHER ==
[2020-06-09 19:22] VITALS: BP 151/77
[~2020-06-15] MED LIST changes: +CEFP100S3 PO; +PHEN-444 PO
--- NOTE | 2020-06-15 13:49 | RAD ---
EXAM: MRI LEFT SHOULDER WITHOUT CONTRAST INDICATION: Left shoulder pain for 2 months. ORIF left humerus with hardware removed. COMPARISON: Left shoulder radiograph 10/28/2019 TECHNIQUE: Multiplanar, multisequence imaging of the left shoulder Without contrast. FINDINGS: ROTATOR CUFF: Mild supraspinatus and infraspinatus tendinopathy. No discrete rotator cuff tear. Subscapularis and teres minor tendons are intact. No rotator cuff muscle atrophy or edema. LABRUM: Unremarkable. BICEPS TENDON: Mild tendinopathy of the biceps tendon as it exits the joint. ACROMIOCLAVICULAR JOINT: Mild acromioclavicular degenerative joint disease with small osteophytes. Type II acromion without downsloping. GLENOHUMERAL JOINT: Articular cartilage is intact. There are small cystic changes at the posterior superior humeral head near the infraspinatus footprint. Alignment is normal. There is no acute fracture. There is some areas of serpiginous signal abnormality in the proximal humerus that are only visualized on coronal and sagittal series. This could be related to previously removed hardware or avascular necrosis. OTHER: No joint effusion. Small amount of fluid in the subacromial-subdeltoid bursa. IMPRESSION: 1. Mild supraspinatus and infraspinatus tendinopathy. 2. Mild biceps tendinopathy. 3. Mild subacromial-subdeltoid bursitis. 4. Mild acromioclavicular degenerative joint disease. 5. Some serpiginous signal abnormality in the proximal humeral diaphysis on coronal and sagittal sequences could be related to previously removed hardware, or potentially seen with avascular necrosis. This is not included in imaging on axial series and is incompletely evaluated. Correlate with recent radiograph. Dedicated MRI of the humerus could be obtained if further evaluation is indicated. Electronically signed by: Sera Womack MD (06/15/2020 1:46 PM) [id number]
== END ==
LOC: MRI 09:30
PROVIDERS: ATTEND Orthopaedic Surgery
DX: M19.012 Primary osteoarthritis, left shoulder (principal); M25.712 Osteophyte, left shoulder
CPT/HCPCS: 73221

== ENCOUNTER → 2020-06-16 | Outpatient (CLI) | payer OTHER ==
[2020-06-09 19:22] VITALS: BP 151/77
== END ==
LOC: LAB 18:18
PROVIDERS: ATTEND Internal Medicine
DX: R30.0 Dysuria (principal)
CPT/HCPCS: 87086

== ENCOUNTER → 2020-06-17 | Outpatient (CLI) | payer OTHER ==
[2020-06-09 19:22] VITALS: BP 151/77
[~2020-06-17] MED LIST changes: +IOHEXOL 300 MG/ML 100ML VIAL. IV ONE
--- NOTE | 2020-06-17 09:15 | RAD ---
CT SCAN OF THE ABDOMEN AND PELVIS WITH IV CONTRAST. History: Reason: LLQ ABD PAIN Comparison:None. Procedure: Contiguous axial images of the abdomen and pelvis were performed after the administration of 75 cc of Omni 300 IV contrast. Oral contrast: No. Findings: The gallbladder appears normal. The appendix appears normal. Liver: Unremarkable Spleen: Unremarkable Pancreas: Unremarkable Adrenal Glands: Unremarkable Kidneys: There are small nonobstructive stones in the left renal pelvis and there is a wedge-shaped defect in the mid left kidney consistent with a scar. There is no mass or lymphadenopathy. There is no free air. There is no free fluid. The urinary bladder appears normal. Impression: Multiple small nonobstructive stones in the left renal pelvis. No acute findings. PQRS Compliance Statement: One or more of the following individualized dose reduction techniques were utilized for this examination: 1. Automated exposure control 2. Adjustment of the mA and/or kV according to patient size 3. Use of iterative reconstruction technique Electronically signed by: Elia Penn III, MD (06/17/2020 9:12 AM) [id number]
== END ==
LOC: CT 08:12
PROVIDERS: ATTEND Internal Medicine
DX: N20.0 Calculus of kidney (principal)
CPT/HCPCS: 74177; Q9967

== ENCOUNTER → 2020-07-20 | Outpatient (CLI) | payer OTHER ==
[~2020-07-20] MED LIST changes: -IOHEXOL 300 MG/ML 100ML VIAL. IV ONE
== END ==
LOC: LAB 08:13
PROVIDERS: ATTEND Internal Medicine Pulmonary Disease
DX: Z20.822 Contact with and (suspected) exposure to COVID-19 (principal)
CPT/HCPCS: U0003

== ENCOUNTER → 2020-09-22 | Outpatient (CLI) | payer OTHER ==
[~2020-09-22] MED LIST changes: +ASCO-151 PO; +CHOL500050 PO; +ESTR42.53 VG; +ESTROGEN PO/SL; +FINA5TAB4 PO; +GLUC100018 PO; +MINO60FO3 TP; +TESTOSTERONE INJ; +[UNRECOGNIZED DRUG - OTHER] PO; +[UNRECOGNIZED DRUG - OTHER] PO/SL
[2020-09-22 17:05] LABS: BASO # 0.1 x10^3/uL (0.0-0.2); BASO % 1 % (0-3); EOS # 0.1 x10^3/uL (0.0-0.7); EOS % 1 % (0-3); HEMOGLOBIN 13.3 g/dL (12.0-15.5); LYMPH # 1.8 x10^3/uL (1.0-4.8); LYMPH % 23 % (24-48); MEAN CORPUSCULAR HEMOGLOBIN 28 pg (25-35); MEAN CORPUSCULAR HGB CONC 33 g/dL (31-37); MEAN CORPUSCULAR VOLUME 85 fL (79-100); MONO # 0.5 x10^3/uL (0.0-1.1); MONO % 6 % (0-9); NEUT # 5.5 x10^3/uL (1.8-7.7); NEUT % 69 % (31-73); PLATELET COUNT 200 x10^3/uL (140-400); RED BLOOD COUNT 4.79 x10^6/uL (3.50-5.40); RED CELL DISTRIBUTION WIDTH 17.2 % (11.5-14.5)
[2020-09-22 18:05] LABS: FREE T4 0.96 ng/dL (0.76-1.46); THYROID STIM HORMONE (TSH) 1.338 uIU/mL (0.358-3.74)
[2020-09-22 18:07] LABS: ALBUMIN 3.8 g/dL (3.4-5.0); ALBUMIN/GLOBULIN RATIO 1.2 (1.0-1.7); CALCIUM 8.5 mg/dL (8.5-10.1); CREATININE 0.8 mg/dL (0.6-1.0); GFR 74.2; POTASSIUM 3.7 mmol/L (3.5-5.1); TOTAL BILIRUBIN 0.4 mg/dL (0.2-1.0); TOTAL PROTEIN 7.1 g/dL (6.4-8.2)
[2020-09-22 23:11] LABS: ESTRADIOL LEVEL 119.7 pg/mL (.)
[2020-09-23 00:11] LABS: PROGESTERONE 1.6 ng/mL (.)
[2020-09-24 21:08] LABS: ANA INTERP Negative (.)
== END ==
LOC: LAB 15:24
PROVIDERS: ATTEND Obstetrics & Gynecology
DX: Z01.419 Encounter for gynecological examination (general) (routine) without abnormal findings (principal); L65.9 Nonscarring hair loss, unspecified; E55.9 Vitamin D deficiency, unspecified
CPT/HCPCS: 36415; 80053; 82306; 82607; 82627; 82670; 82728; 82746; 84144; 84207; 84255; 84402; 84403; 84425; 84439; 84443; 84630; 85025; 86038

== ENCOUNTER 2020-09-28 08:40 | Day surgery (SDC) | payer OTHER ==
[~2020-09-28] VITALS: Ht 166.4 cm; Wt 78.0 kg
[~2020-09-28 08:40] MED LIST changes: +BUPIVACAINE-EPI 0.25% 30 ML VIAL KIT. ONE; +EPINEPHrine VIAL 30 MG/30 ML VIAL ONE; +IV RINGERS,LACTATED 1000ML 1,000 ML IV SCH; +MORPHINE SULFATE 2 MG/ML VIAL. IVP PRN; +PROCHLORPERAZINE 10 MG/2 ML VIAL. IVP PRN; +fentaNYL PF VIAL 100 MCG/2 ML VIAL IVP PRN
[2020-09-28] MEDS ORDERED: LIDOCAINE 2% PF 5 ML VIAL. ONE (08:55)
[2020-09-28] MEDS ORDERED: MIDAZOLAM HCL/PF 2 MG/2 ML VIAL. ONE (08:55)
[2020-09-28] MEDS ORDERED: PROPOFOL 10 MG/ML (20ML) VIAL. IV ONE (08:55)
[2020-09-28] MEDS ORDERED: ROCURONIUM 50 MG/5 ML VIAL. ONE (08:55)
[2020-09-28] MEDS ORDERED: fentaNYL PF VIAL 100 MCG/2 ML VIAL ONE ×3 (08:55→12:18)
[2020-09-28] MEDS ORDERED: ONDANSETRON PF 4 MG/2 ML VIAL. ONE (10:09)
[2020-09-28] MEDS ORDERED: DEXAMETHASONE SOD PHOS 4 MG/ML VIAL ONE (10:09)
[2020-09-28] MEDS ORDERED: KETOROLAC 30 MG/ML VIAL. ONE (10:09)
[2020-09-28] MEDS ORDERED: HYDROmorphone 2 MG/ML VIAL ONE ×2 (10:16→13:06)
[2020-09-28] MEDS ORDERED: ePHEDrine PF IN SALINE 50 MG/10 ML SYRINGE. IV ONE (10:19)
[2020-09-28] MEDS ORDERED: NEOSTIGMINE METHYLSULFATE 5 MG/5 ML SYRINGE. ONE (10:42)
[2020-09-28] MEDS ORDERED: GLYCOPYRROLATE 1 MG/5 ML VIAL. ONE (10:42)
[2020-09-28] MEDS ORDERED: SEVOFLURANE 61 TO 120 MINUTES. IH ONE (10:43)
[2020-09-28] MEDS ORDERED: SEVOFLURANE > 120 MINUTES. IH ONE (11:24)
[2020-09-28] MEDS ORDERED: ceFAZolin SODIUM IV Push 1 GM VIAL. IVP ONE (11:24)
--- NOTE | 2020-09-28 11:51 | PDOC4 ---
Operative Note Operative Note Date of Procedure: September 28, 2020 Pre-Op Diagnosis: Incomplete tear of left rotator cuff, unspecified whether traumatic - M75.112 Osteoarthritis of left shoulder, unspecified osteoarthritis type - M19.012 Impingement syndrome, shoulder, left - M75.42 Bicipital tendinitis, left shoulder - M75.22 Post-Op Diagnosis: Incomplete tear of left rotator cuff, unspecified whether traumatic - M75.112 Osteoarthritis of left shoulder, unspecified osteoarthritis type - M19.012 Impingement syndrome, shoulder, left - M75.42 Bicipital tendinitis, left shoulder - M75.22 Superior glenoid labrum lesion of left shoulder, initial encounter. S43. 432A Procedure: Left shoulder, repair of ruptured musculotendinous cuff (rotator cuff) open, acute CPT 34702 Arthroscopy, left shoulder, surgical; decompression of subacromial space with partial acromioplasty CPT 89126 Arthroscopy, left shoulder, surgical; distal claviculectomy 10 mm, including distal articular surface (Daniel procedure) CPT 33582 Arthroscopy, left shoulder, surgical; debridement, extended, 3 or more discrete structures CPT 91035 Surgeon: Mary Osorio MD Retail Marketing Executive: SETH Chauhan Anesthesia: General EBL: 50 mL Specimens Obtained: none Complications: none Drains: none Findings: High-grade partial-thickness supraspinatus insertion rotator cuff tear, with visualized partial tearing extensively on the bursal side and also was visualized from the articular side. There was only about 2 mm of intact tendon thickness of the supraspinatus which was converted to a full-thickness tear with minimal dissection. Prominent anterior acromion. Prominent arthritic distal clavicle, 10 mm was resected to decrease the arthritis symptoms and impingement occurring from the clavicular osteophytes. Implants: Arthrex swivel lock anchors 4.75 mm x 4 Indications for Procedure: Sangeetha is 55 years old and she has pain and weakness i n the shoulder despite nonoperative treatment with injections and physical therapy. Exam MRI and history are consistent with tendinitis or rotator cuff tear, impingement syndrome, and painful acromioclavicular joint osteoarthritis. I recommended arthroscopy, subacromial decompression, distal clavicle excision, and possible rotator cuff repair. We talked about the potential risks of surgery such as bleeding infection stiffness neurovascular injury continued pain or weakness or other potential surgical or anesthetic complications. All of her questions about surgery were answered and she desires to proceed. A written consent was obtained. Procedure in Detail: The patient was identified in the preoperative holding area. The correct left shoulder was marked by me. The patient was taken to the operating room where general anesthesia was used. The patient was positioned in the beach chair position with the bony prominences well-padded and the eyes protected. Preoperative antibiotics were given intravenously. A timeout procedure was performed. Under sterile technique 20 mL of bupivacaine with epinephrine was injected into the subacromial space and glenohumeral joint. The limb was then thoroughly prepared with surgical ChloraPrep solution circumferentially. Sterile waterproof arthroscopy shoulder drapes were applied, along with an impervious stockinette over the arm, and a Spider arm mata. Posterior, posterolateral, lateral, and anterior arthroscopy portals were used. The glenohumeral joint showed normal articular surfaces of the humeral head and glenoid. The biceps tendon was palpated with the shaver, and retracted into the joint, and the tendon appears normal. There is tendonitis at the supraspinatus insertion, with at least a partial thickness cuff tear, and this was marked with a PDS suture. I performed arthroscopic debridement of several intra-articular structures including partial degenerative tearing of the anterior labrum, partial degenerative tearing of the supraspinatus tendon, and partial degene rative tearing of the biceps tendon and superior glenoid. The subacromial space was entered. The anterior acromion was prominent and the subacromial space was narrowed. The ConMed Edge thermal energy bipolar device was used for hemostasis and to resect the undersurface periosteum exposing the prominent anterior acromion. A 6.0 mm oval fernanda was used for the acromioplasty. A three-stage acromioplasty was performed, with the fernanda first laterally, removing anterior acromion, using the distal clavicle as a reference. The fernanda was then placed in the posterior portal, and a cutting block technique was used for smoothing of the lateral edge of the acromion tapering the anterior acromion into a Bigliani type I configuration. Final smoothing of the acromion was per formed with the fernanda again in the lateral portal, and direct arthroscopic visualization. The impingement of the subacromial space was now nicely decompressed. No further impingement appears to be occurring from the acromion, however the arthritic distal clavicle is degenerative with an osteoarthritic distal clavicle articular surface. The fernanda was used to resect the entire articular surface of the distal clavicle and 10 mm of distal clavicle bone, completing the [place] arthroscopic distal clavicle excision. The Acumen Edge thermal energy device was used for hemostasis. The cuff was examined at the marker suture. There is deep partial-thickness tearing, nearly the full-thickness of the tendon at the footprint, with no bleeding, and degenerative tendon fibers, unlikely to spontaneously heal. I think this area would continue to be painful without tendon repair and improved blood flow with the crimson duvet. The arthroscopic instruments were removed. Antibiotics were redosed. Outer gloves were changed. The skin was prepared a second time with ChloraPrep solution. An anterior lateral deltoid raphae splinting incision was used. Care was made not to extend more than 4 cm distally so as to avoid axillary nerve injury. Self-retaining retractors were placed including Weitlaner and then Kobel retractors. Rongeurs were used to decorticate the supraspinatus footprint, and create a "cri mson duvet". The two medial 4.75 mm swivel lock anchors with swaged suture tapes were used. I used the smallest punch, and her bone quality is soft, but the anchors seem to have satisfactory purchase due to the use of the small bone punch. I tugged on the sutures after each anchor was placed to make sure that it was secured in the bone. All of the medial sutures were deployed with Arthrex scorpion device, about 16 mm from the distal edge of the cuff. The medial mattress sutures were secured and tied, and Ken my technology assistant held tension, reducing the cuff while the sutures were tied, and these medial mattress sutures were placed in a rip-stop pattern to prevent the tapes from tearing through the abnormal cuff tissue. The swaged suture tapes were then tri mmed, the tapes were crossed, and the 2 lateral row anchors were now placed on the humeral cortex for secure speed bridge repair. The additional sutures were not needed. The shoulder was taken through a range of motion, and the repair security confirmed. Copious saline irrigation was used. I closed the fascia of the deltoid with #0 Vicryl suture in a [id number] fashion. My technology assistant Jonas then completed the subcutaneous closure with #2-0 Vicryl. He closed the portals with #3-0 Prolene. He repaired the skin incision with #3-0 Stratafix, Mastisol and Steri- Strips. He injected an additional 30 mL of bupivacaine with epinephrine. Xeroform was used over the portals. A bulky sterile dressing was applied. A DonJoy UltraSling was applied. There were no apparent complications. MARY OSORIO MD Sep 28, 2020 11:51
[2020-09-28] MEDS ORDERED: oxyCODONE/APAP 5/325 1 TAB TABLET PO ONE ×2 (12:00)
[2020-09-28] MEDS: fentaNYL PF VIAL 100 MCG/2 ML VIAL IVP PRN ×2 (12:25→12:35)
[2020-09-28] MEDS ORDERED: OXYC1TAB15 PO (12:52)
[2020-09-28] MEDS ORDERED: PROM25TA10 PO (12:54)
[2020-09-28] MEDS ORDERED: oxyCODONE/APAP 5/325 1 TAB TABLET PO PRN ×2 (13:00)
[2020-09-28] MEDS: HYDROmorphone 2 MG/ML VIAL IVP PRN ×2 (13:11→13:26)
[2020-09-28 13:45] VITALS: BP 161/87
== END 2020-09-28 14:28 | disposition home or self-care (01) ==
LOC: SURG 08:40
PROVIDERS: ATTEND Orthopaedic Surgery
DX: M75.112 Incomplete rotator cuff tear or rupture of left shoulder, not specified as traumatic (principal); S43.432A Superior glenoid labrum lesion of left shoulder, initial encounter; M19.012 Primary osteoarthritis, left shoulder; M75.42 Impingement syndrome of left shoulder; M75.22 Bicipital tendinitis, left shoulder; K21.9 Gastro-esophageal reflux disease without esophagitis; Z90.710 Acquired absence of both cervix and uterus; Z98.890 Other specified postprocedural states; Z79.899 Other long term (current) drug therapy; Z72.89 Other problems related to lifestyle; Z88.2 Allergy status to sulfonamides; Z20.822 Contact with and (suspected) exposure to COVID-19; Z88.8 Allergy status to other drugs, medicaments and biological substances; X58.XXXA Exposure to other specified factors, initial encounter; Y93.89 Activity, other specified; Y92.89 Other specified places as the place of occurrence of the external cause; Y99.8 Other external cause status
CPT/HCPCS: 23410; 29823; 29824; 29826; 87426; A4565; A4928; A4930; C1713; C9803; J0171; J0690; J1100; J1170; J1885; J2405; J2704; J2710; J3010; J3490; U0003; A4223; A4452; A4623; J2250

== ENCOUNTER → 2020-10-20 | Outpatient (CLI) | payer OTHER ==
[2020-09-28 13:45] VITALS: BP 161/87
[~2020-10-20] MED LIST changes: -BUPIVACAINE-EPI 0.25% 30 ML VIAL KIT. ONE; -EPINEPHrine VIAL 30 MG/30 ML VIAL ONE; -IV RINGERS,LACTATED 1000ML 1,000 ML IV SCH; -MORPHINE SULFATE 2 MG/ML VIAL. IVP PRN; -PROCHLORPERAZINE 10 MG/2 ML VIAL. IVP PRN; +PROM25TA10 PO; -fentaNYL PF VIAL 100 MCG/2 ML VIAL IVP PRN
--- NOTE | 2020-10-20 14:04 | KCIC ---
EXAM: DUAL ENERGY X-RAY ABSORPTIOMETRY (DEXA). HISTORY: Postmenopausal screening. FINDINGS: The lowest measured T-score is -0.3 in the lumbar spine, based on a bone mineral density of 1.013 g/cm^2. Refer to the worksheets for full detail. No comparison examinations are available. IMPRESSION: 1. Normal. Bone mineral density yields a T-score of -1.0 or greater. Fracture risk is low. 2. FRAX report: Not calculated. METHODOLOGY: Dual energy x-ray absorptiometry was performed to measure bone mineral density. The foll owing analysis is based on the 2019 Official Positions of the International Society for Clinical Dens itometry: Measurements of the hips and the average of L1-L4 are preferred. When the spine and/or hip cannot be feasibly measured or interpreted, or in the setting of hyperparathyroidism, distal radial bone minera l density may be measured. The lumbar spine T-score is based on the average bone mineral density of L1-L4. In the setting of art ifact or anatomic abnormality, some lumbar levels may be excluded, and the remaining levels used for calculation. A single lumbar level is not used for diagnosis, and if only a single level is available for assessment, another anatomic site will be used to assign a diagnosis. The hip T-score is based on the bone mineral density measurement of the femoral neck or total proxima l femur of either side, whichever is lowest. Bilateral mean values are not used for diagnosis. The forearm T-score is derived from 33% of the distal radius of the nondominant forearm. Electronically signed by: Indira Bello MD (10/20/2020 2:02 PM) [facility]
== END ==
LOC: KCIC DEXA 12:53
PROVIDERS: ATTEND Orthopaedic Surgery
DX: M19.011 Primary osteoarthritis, right shoulder (principal); N95.9 Unspecified menopausal and perimenopausal disorder
CPT/HCPCS: 77080

== ENCOUNTER → 2021-03-16 | Outpatient (CLI) | payer OTHER | LOC: LAB 08:33 | PROVIDERS: ATTEND Internal Medicine Pulmonary Disease | DX: R51.9 Headache, unspecified (principal); R53.82 Chronic fatigue, unspecified; R09.89 Other specified symptoms and signs involving the circulatory and respiratory systems; Z20.822 Contact with and (suspected) exposure to COVID-19 | CPT/HCPCS: U0003; U0005 ==

== ENCOUNTER → 2021-03-22 | Outpatient (CLI) | payer OTHER | LOC: LAB 10:29 | PROVIDERS: ATTEND Internal Medicine Pulmonary Disease | DX: R51.9 Headache, unspecified (principal); R50.9 Fever, unspecified; M79.10 Myalgia, unspecified site; Z20.822 Contact with and (suspected) exposure to COVID-19 | CPT/HCPCS: U0003; U0005 ==

== ENCOUNTER → 2021-05-18 | Outpatient (CLI) | payer OTHER ==
--- NOTE | 2021-05-18 16:22 | RAD ---
BILATERAL DIGITAL SCREENING 2-D AND 3-D MAMMOGRAM INDICATION: Routine screening. COMPARISON: May 20, 2020, April 27, 2017 Interpretation was made using CAD. FINDINGS: Breast Density: The breasts are heterogeneously dense, which may obscure small masses. RIGHT BREAST: There is motion artifact in the inferior aspect of the right breast on the MLO view. Re peat imaging is recommended. LEFT BREAST: Focal asymmetries with possible distortion are seen in the upper outer left breast on th e 3-D views. This is seen on the MLO and XCCL views. No suspicious calcifications are identified. The re is an unchanged oval circumscribed subcentimeter mass in her breast near the 9:00 location. IMPRESSION: 1. TECHNICAL REPEAT: A repeat right MLO view is recommended due to motion artifact in the inferior as pect of the breast. 2. Indeterminate asymmetries with possible distortion on the 3-D views in the upper outer left breast . Additional diagnostic imaging with spot compression views is recommended. Ultrasound may also be ne cessary. ASSESSMENT: BI-RADS 0 INCOMPLETE ASSESSMENT. Additional imaging is necessary. RECOMMENDATION: 1. TECHNICAL REPEAT: A repeat right MLO view is recommended due to motion artifact in the inferior as pect of the breast. 2. Diagnostic left mammogram with possible left breast ultrasound. The facility will notify the patient of the results via mail. Patient information will be entered int o the mammography reminder system with a target recall date for the next mammogram. A reminder letter will be generated by the facility. Electronically signed by: Alecia Olivas MD (05/18/2021 4:19 PM) [id number]
== END ==
LOC: MAMMO 07:59
PROVIDERS: ATTEND Obstetrics & Gynecology
DX: Z12.31 Encounter for screening mammogram for malignant neoplasm of breast (principal)
CPT/HCPCS: 77063; 77067

== ENCOUNTER → 2021-06-14 | Outpatient (CLI) | payer OTHER ==
--- NOTE | 2021-06-14 10:40 | RAD ---
Examination: MRI of the right shoulder without contrast HISTORY: History of nontraumatic incomplete tear of the rotator cuff, subacromial impingement COMPARISON: None TECHNIQUE: Multiplanar, multisequence MR imaging of the right shoulder performed without contrast. FINDINGS: The long head of the biceps tendon within the bicipital groove. The attachment of the long head the b iceps tendon to the superior labral anchor grossly appears intact. The attachment of subscapularis, s upraspinatus, infraspinatus tendon grossly appears intact. There is mild increased T2 signal identifi ed in the infraspinatus tendon likely mild tendinosis. The acromion is type II. The inferior aspect o f the acromion abuts the superior aspect of supraspinatus tendon. Minimal fluid identified in subacro mial subdeltoid bursa. The visualized labrum grossly appears unremarkable. Moderate degenerative changes acromioclavicular j oint. The muscle bulk grossly appears unremarkable. There is mild obscuration of fat in the rotator i nterval. IMPRESSION: 1. The inferior aspect of the acromion abuts the superior aspect of supraspinatus tendon, correlate f or impingement. Trace fluid identified in the subacromial subdeltoid bursa identified. 2. Moderate degenerative changes acromioclavicular joint. 3. Mild obscuration of fat in the rotator interval. Correlate for impingement. Electronically signed by: Nba Garrison MD (06/14/2021 10:37 AM) [id number]
== END ==
LOC: MRI 08:06
PROVIDERS: ATTEND Physician Assistant
DX: M19.011 Primary osteoarthritis, right shoulder (principal); E65 Localized adiposity; M75.111 Incomplete rotator cuff tear or rupture of right shoulder, not specified as traumatic; M75.41 Impingement syndrome of right shoulder
CPT/HCPCS: 73221

== ENCOUNTER → 2021-06-21 | Outpatient (CLI) | payer OTHER ==
--- NOTE | 2021-06-21 10:20 | RAD ---
PROCEDURE: MG DIAGNOSTIC BILAT HISTORY: The patient is 56 years old and is seen for Reason: CALLBACK / Spl. Instructions: / History : . COMPARISON: May 18, 2021 and May 20, 2020 TECHNIQUE: CC and MLO views of both breasts were obtained. Images were processed by the [employer] computer-aided detection system. DENSITY: The breast parenchyma is heterogeneously dense. This may lower the sensitivity of mammograph y. FINDINGS: Right breast: Asymmetry identified within the central right breast on MLO view which are irregular. S pot compression was performed of this region. The asymmetry is less apparent on spot compression view s and likely related to overlapping fibroglandular tissue. Left breast: Previously identified asymmetry within the left breast is less apparent on spot compress ion views. IMPRESSION: 1. Bilateral breast asymmetries are less apparent on spot compression views, likely overlapping fibr oglandular tissue. Recommend return to annual screening. Recommend annual screening mammograms per [employer] [place] guidelines. She will be due in one year. BI-RADS category 2 Benign Patient entered into a reminder system for annual screening mammogram. Electronically signed by: Jamie Nieves DO (06/21/2021 10:17 AM) [id number]
== END ==
LOC: MAMMO 08:55
PROVIDERS: ATTEND Obstetrics & Gynecology
DX: R92.8 Other abnormal and inconclusive findings on diagnostic imaging of breast (principal)
CPT/HCPCS: 77066

== ENCOUNTER → 2021-07-16 | Outpatient (CLI) | payer OTHER ==
[~2021-07-16] MED LIST changes: +GADOTERATE 5 MMOL/10ML VIAL. INT ART ONE; +IOHEXOL 300 MG/ML 50 ML VIAL. INT ART ONE; +LIDOCAINE 1% Multi-Dose 20 ML VIAL. ID ONE
--- NOTE | 2021-07-16 15:41 | KCIC ---
FLUOROSCOPICALLY GUIDED LEFT SHOULDER ARTHROGRAM 1. INDICATION: The patient is a 56 years old Female who presented with left shoulder adhesive capsul itis. 2. CONSENT: The risks, benefits, treatment options, potential complications and personnel to be invo lved were discussed (including the risks of radiation exposure, instruments to be used, contrast and anesthesia administration) with the patient. All questions were answered and consent was obtained. Th e patient indicated willingness to proceed. 3. GENERAL: a) Medication Reconciliation: The patient's medications and allergies were reviewed in the [facility] medical record and reconciled to the proposed procedure/treatment. Pre-procedure Sign-in: Safety Checklist Performed Yes b) Positioning: The patient was placed Supine on the fluoroscopy table. c) The shoulder was then sterilely prepped and draped. d) Time Out: A time out was performed immediately prior to procedure start with the nursing, anesthes ia and interventional team, correctly identifying the patient name, date of , procedure, anatomy (including marking of site and side), patient position, procedure consent form, relevant diagnostic and radiology test results, antibiotic administration, safety precautions, and procedure-specific equ ipment needs. e) Anesthesia Type: Local anesthesia: 3 mL 1% Lidocaine 4. PROCEDURE: a) Procedure Details: A 22g spinal needle was inserted into the shoulder joint. 2 mL Omnipaque 300 w as injected to confirm intra-articular placement of needle. Contrast was observed to flow into the in tra-articular space of the joint without significant resistance. 14 mL of injectate was administered into the joint. The needle was removed. Images were stored to the permanent digital archive documenti ng needle position. b) Injectate Contents: 0.2 mL Clariscan 20 mL Normal Saline c) Estimated Blood Loss: 0 mL RADIATION DOSE: Fluoroscopic Radiation Summary: Fluoroscopy Time: 0:08 min:sec Number of Images: 1 POST PROCEDURE: a) Hemostasis: Hemostasis was achieved using light manual compression. b) Sign-out: Communication Performed Yes c) Conclusion: The patient was discharged from the radiology department in stable condition. COMPLICATIONS: a) Significant Patient Complication: None If other, explain: b) Complications during the procedure: None If other, explain: 5. RESULTS: Contrast was injected into the joint. 6. IMPRESSION: SUCCESSFUL FLUOROSCOPICALLY GUIDED ARTHROGRAM OF THE LEFT SHOULDER DESCRIBED ABOVE. Electronically signed by: Johny Mcdaniel DO (07/16/2021 3:39 PM) [id number]
--- NOTE | 2021-07-16 16:07 | KCIC ---
EXAMINATION: MR ARTHROGRAM LEFT SHOULDER CLINICAL HISTORY: Adhesive capsulitis left shoulder. History of rotator cuff repair with subacromial decompression and distal clavicle resection September 2020. TECHNIQUE: MRI shoulder arthrogram protocol. Procedural portion of the arthrogram reported separately . COMPARISON: Left shoulder MRI 06/15/2020 and radiographs 10/28/2019 FINDINGS: LABRUM: Posterior and inferior labral degeneration without discrete tear, similar to prior study. TENDONS: 4 tendon anchors in the greater tuberosity/humeral head related to prior rotator cuff repair . Thin linear full-thickness defects in the middle third of the supraspinatus tendon and at the junct ion of the supraspinatus and infraspinatus tendons, possibly postsurgical but cannot exclude full-thi ckness fissuring. Low-grade partial-thickness articular sided tearing versus postsurgical changes in the anterior supraspinatus and infraspinatus tendons at the tendon anchors. Low-grade interstitial ex tension is also seen at this level in the infraspinatus tendon. Subscapularis and teres minor tendons intact. Long head biceps tendon intact and appropriately located. MUSCLES: Partially visualized mild curvilinear edema in the mid infraspinatus muscle. GLENOHUMERAL JOINT: No full-thickness chondral defect visualized. ACROMIOCLAVICULAR JOINT: Postoperative changes related to distal clavicle resection and acromioplasty . BONES/MARROW: No evidence of acute fracture or suspicious marrow replacing process. OTHER: Multifocal subcutaneous susceptibility artifact along the superolateral shoulder related to pr ior surgery. IMPRESSION: Postoperative changes related to prior rotator cuff repair, cannot exclude full-thickness fissuring a nd/or low-grade partial-thickness tearing in the supraspinatus and infraspinatus tendons as described . Electronically signed by: Johny Mcdaniel DO (07/16/2021 4:04 PM) [id number]
== END | disposition home or self-care (01) ==
LOC: KCIC 13:40
PROVIDERS: ATTEND Orthopaedic Surgery
DX: M75.02 Adhesive capsulitis of left shoulder (principal); K21.9 Gastro-esophageal reflux disease without esophagitis; Z90.710 Acquired absence of both cervix and uterus; Z98.890 Other specified postprocedural states; Z79.899 Other long term (current) drug therapy; Z88.2 Allergy status to sulfonamides; Z88.1 Allergy status to other antibiotic agents
CPT/HCPCS: 23350; 73222; 77002; A9575; J3490; Q9967

== ENCOUNTER 2021-07-26 08:19 | Emergency (ER) | payer OTHER ==
[~2021-07-26] VITALS: Ht 170.2 cm; Wt 80.5 kg
[~2021-07-26 08:19] MED LIST changes: -GADOTERATE 5 MMOL/10ML VIAL. INT ART ONE; -IOHEXOL 300 MG/ML 50 ML VIAL. INT ART ONE; -LIDOCAINE 1% Multi-Dose 20 ML VIAL. ID ONE
[2021-07-26] MEDS ORDERED: ONDANSETRON PF 4 MG/2 ML VIAL. IVP ONE (09:30)
[2021-07-26] MEDS ORDERED: IV NORMAL SALINE 1000ML BAG 1,000 ML IV SCH (09:30)
--- NOTE | 2021-07-26 09:30 | ED.ADGEN ---
Past Medical History Past Medical History: GERD, UTI Past Surgical History: Hysterectomy, Oophorectomy Additional Past Surgical Histo: ORIF L HUMERUS, R HAND REVACULARIZATION Smoking Status: Never Smoker Alcohol Use: Occasionally Drug Use: None General Adult EDM: Chief Complaint: ABDOMINAL PAIN HPI: HPI: Patient is a 56-year-old female who arrives ambulatory to the emergency department complaining of left lower quadrant abdominal pain. Patient reports this pain woke her at 530 this morning. Patient states the pain comes in waves and when it hits is very strong. Patient states she has a history of diverticulosis and has had this pain previously. Despite the patient's pain, she denies any dysuria. She further denies any fever, nausea or vomiting. Additionally she denies any diarrhea. She is awake, alert and uncomfortable appearing [] Review of Systems: Review of Systems: Constitutional: Denies fever or chills. [] Eyes: Denies change in visual acuity. [] HENT: Denies nasal congestion or sore throat. [] Respiratory: Denies cough or shortness of breath. [] Cardiovascular: Denies chest pain or edema. [] GI: Reports abdominal pain. Denies nausea, vomiting, bloody stools or diarrhea. [] : Denies dysuria. [] Musculoskeletal: Denies back pain or joint pain. [] Integument: Denies rash. [] Neurologic: Denies headache, focal weakness or sensory changes. [] Endocrine: Denies polyuria or polydipsia. [] Lymphatic: Denies swollen glands. [] Psychiatric: Denies depression or anxiety. [] Current Medications: Current Medications Medications (Trade) Dose Ordered Sig/Bandar Start Time Stop Time Status Last Admin Dose Admin Info (CONTRAST GIVEN -- Rx MONITORING) 1 each PRN DAILY PRN 07/26/21 11:30 07/28/21 11:29 Iohexol (Omnipaque 300 Mg/ml) 75 ml 1X ONCE 07/26/21 11:15 07/26/21 11:19 DC 07/26/21 11:29 75 ML Morphine Sulfate (Morphine Sulfate) 4 mg PRN Q15MIN PRN 07/26/21 09:30 07/27/21 09:29 07/26/21 11:37 4 MG Ondansetron HCl (Zofran) 4 mg 1X ONCE 07/26/21 09:30 07/26/21 09:31 DC Sodium Chloride 1,000 ml @ 1,000 mls/hr Q1H 07/26/21 09:30 07/26/21 10:29 DC 07/26/21 10:00 1,000 MLS/HR Allergies: Allergies: Allergies Coded Allergies Type Severity Reaction Last Updated Verified Sulfa (Sulfonamide Antibiotics) Allergy Intermediate Hives 07/26/21 Yes hydrocodone Adverse Reaction Intermediate Nausea and Vomiting 07/26/21 Yes Physical Exam: PE: Constitutional: Well developed, well nourished, no acute distress, non-toxic appearance. [] HENT: Normocephalic, atraumatic, bilateral external ears normal, oropharynx moist, no oral exudates, nose normal. [] Eyes: PERRLA, EOMI, conjunctiva normal, no discharge. [] Neck: Normal range of motion, no tenderness, supple, no stridor. [] Cardiovascular:Heart rate regular rhythm, no murmur [] Lungs & Thorax: Bilateral breath sounds clear to auscultation [] Abdomen: Tenderness to palpation of the left upper and left lower quadrant of the abdomen. Bowel sounds normal, soft, no masses, no pulsatile masses. [] Skin: Warm, dry, no erythema, no rash. [] Back: No tenderness, no CVA tenderness. [] Extremities: No tenderness, no cyanosis, no clubbing, ROM intact, no edema. [] Neurologic: Alert and oriented X 3, normal motor function, normal sensory function, no focal deficits noted. [] Psychologic: Affect normal, judgement normal, mood normal. [] Current Patient Data: Labs: Laboratory Tests Test 07/26/21 10:00 White Blood Count 10.9 x10^3/uL (4.0-11.0) Red Blood Count 5.24 x10^6/uL (3.50-5.40) Hemoglobin 15.7 g/dL (12.0-15.5) H Hematocrit 46.9 % (36.0-47.0) Mean Corpuscular Volume 90 fL (79-100) Mean Corpuscular Hemoglobin 30 pg (25-35) Mean Corpuscular Hemoglobin Concent 34 g/dL (31-37) Red Cell Distribution Width 13.3 % (11.5-14.5) Platelet Count 213 x10^3/uL (140-400) Neutrophils (%) (Auto) 89 % (31-73) H Lymphocytes (%) (Auto) 7 % (24-48) L Monocytes (%) (Auto) 4 % (0-9) Eosinophils (%) (Auto) 0 % (0-3) Basophils (%) (Auto) 0 % (0-3) Neutrophils # (Auto) 9.7 x10^3/uL (1.8-7.7) H Lymphocytes # (Auto) 0.7 x10^3/uL (1.0-4.8) L Monocytes # (Auto) 0.4 x10^3/uL (0.0-1.1) Eosinophils # (Auto) 0.0 x10^3/uL (0.0-0.7) Basophils # (Auto) 0.0 x10^3/uL (0.0-0.2) Sodium Level 139 mmol/L (136-145) Potassium Level 4.1 mmol/L (3.5-5.1) Chloride Level 102 mmol/L (98-107) Carbon Dioxide Level 28 mmol/L (21-32) Anion Gap 9 (6-14) Blood Urea Nitrogen 23 mg/dL (7-20) H Creatinine 0.8 mg/dL (0.6-1.0) Estimated GFR (Cockcroft-Gault) 73.9 BUN/Creatinine Ratio 29 (6-20) H Glucose Level 127 mg/dL (70-99) H Calcium Level 8.6 mg/dL (8.5-10.1) Total Bilirubin 0.4 mg/dL (0.2-1.0) Aspartate Amino Transferase (AST) 21 U/L (15-37) Alanine Aminotransferase (ALT) 30 U/L (14-59) Alkaline Phosphatase 90 U/L (46-116) Total Protein 7.6 g/dL (6.4-8.2) Albumin 4.1 g/dL (3.4-5.0) Albumin/Globulin Ratio 1.2 (1.0-1.7) Lipase 76 U/L (73-393) Laboratory Tests 07/26/21 10:00 Laboratory Tests 07/26/21 10:00 Vital Signs: Vital Signs Date Time Temp Pulse Resp B/P (MAP) Pulse Ox O2 Delivery O2 Flow Rate FiO2 07/26/21 11:37 18 99 Room Air 07/26/21 10:19 78 177/81 (113) 07/26/21 09:15 98.1 98.1 EKG: EKG: [] Heart Score: C/O Chest Pain: No Risk Factors: Risk Factors: DM, Current or recent (<one month) smoker, HTN, HLP, family history of CAD, obesity. Risk Scores: Score 0 - 3: 2.5% MACE over next 6 weeks - Discharge Home Score 4 - 6: 20.3% MACE over next 6 weeks - Admit for Clinical Observation Score 7 - 10: 72.7% MACE over next 6 weeks - Early Invasive Strategies Radiology/Procedures: Radiology/Procedures: [][facility] [address] [place] [address] IMAGING REPORT Signed PATIENT: GUNNAR MICHAELS ACCOUNT: [id number] : 1965 LOCATION: ER AGE: 56 SEX: F EXAM STATUS: REG ER ORD. PHYSICIAN: EVELYN DOTY DO REASON: Left-sided abdominal pain PROCEDURE: CT ABD PELV W/ IV CONTRST ONLY Exam Date: 07/26/2021 11:[address] ABDOMEN+PELVIS W Indication: Reason: Left-sided abdominal pain / Spl. Instructions: IV omni 300 75 mls / History: . TECHNIQUE: CT examination of the abdomen and pelvis was performed following the administration of nonionic intravenous contrast. One or more of the following dose reduction techniques were utilized: *Automated exposure control (AEC) *Adjustment of mA and/or kV according to patient size *Use of iterative reconstruction technique *CT scan done according to ALARA, or ALARA/IMAGE GENTLY FINDINGS: The visualized lung bases are clear. There is a 5 mm calculus at the left ureterovesicular junction resulting in mild left hydroureteronephrosis. Bilateral nonobstructing renal calculi are noted, the largest measuring 2 mm on the right and 7 mm on the left. No right hydronep hrosis. The liver, gallbladder, spleen, pancreas, adrenal glands and kidneys are otherwise normal. Urinary bladder is normal in appearance. There is no bowel obstruction or inflammation. The appendix is normal. Mild atherosclerotic calcifications are seen. No lymphadenopathy or ascites is seen. Degenerative changes are seen in the spine. IMPRESSION: 5 mm left UVJ calculus resulting in mild left hydroureteronephrosis. Bilateral nonobstructing renal calculi noted. No right hydronephrosis. Electronically signed by: eJz Miller MD (07/26/2021 11:39 AM) [id number] Course & Med Decision Making: Course & Med Decision Making Pertinent Labs and Imaging studies reviewed. (See chart for details) [] Dragon Disclaimer: Dragon Disclaimer: This electronic medical record was generated, in whole or in part, using a voice recognition dictation system. Departure Departure Impression: Primary Impression: Ureterolithiasis Additional Impression: Hydronephrosis Disposition: HOME / SELF CARE / HOMELESS Condition: STABLE Referrals: JOSEPH MCCARTHY MD (PCP) Patient Instructions: Diet for Kidney Stones, Kidney Stones Scripts Oxycodone/Apap 5-325 (PERCOCET 5-325 MG TABLET ) 1 Each Tablet 1 TAB PO PRN Q6HRS PRN for PAIN, #20 TAB 0 Refills Prov: EVELYN DOTY DO 07/26/21 Tamsulosin Hcl (FLOMAX) 0.4 Mg Cap.er.24h 1 CAP PO DAILY for 14 Days, #14 CAP 0 Refills Prov: EVELYN DOTY DO 07/26/21 Problem Qualifiers EVELYN DOTY DO Jul 26, 2021 09:30
[2021-07-26] MEDS: MORPHINE SULFATE 4 MG/ML INJ. IV/SQ PRN ×2 (10:01→11:37)
[2021-07-26 10:23] LABS: BASO % 0 % (0-3); EOS % 0 % (0-3); HEMATOCRIT 46.9 % (36.0-47.0); HEMOGLOBIN 15.7 g/dL (12.0-15.5); LYMPH # 0.7 x10^3/uL (1.0-4.8); LYMPH % 7 % (24-48); MEAN CORPUSCULAR HEMOGLOBIN 30 pg (25-35); MEAN CORPUSCULAR HGB CONC 34 g/dL (31-37); MEAN CORPUSCULAR VOLUME 90 fL (79-100); MONO # 0.4 x10^3/uL (0.0-1.1); MONO % 4 % (0-9); NEUT # 9.7 x10^3/uL (1.8-7.7); NEUT % 89 % (31-73); PLATELET COUNT 213 x10^3/uL (140-400); RED BLOOD COUNT 5.24 x10^6/uL (3.50-5.40); RED CELL DISTRIBUTION WIDTH 13.3 % (11.5-14.5); WHITE BLOOD COUNT 10.9 x10^3/uL (4.0-11.0)
[2021-07-26 10:32] LABS: ALBUMIN 4.1 g/dL (3.4-5.0); ALBUMIN/GLOBULIN RATIO 1.2 (1.0-1.7); CALCIUM 8.6 mg/dL (8.5-10.1); CREATININE 0.8 mg/dL (0.6-1.0); GFR 73.9; TOTAL BILIRUBIN 0.4 mg/dL (0.2-1.0); TOTAL PROTEIN 7.6 g/dL (6.4-8.2)
[2021-07-26 10:38] LABS: POTASSIUM 4.1 mmol/L (3.5-5.1)
[2021-07-26] MEDS ORDERED: IOHEXOL 300 MG/ML 100ML VIAL. IV ONE (11:15)
[2021-07-26] MEDS ORDERED: CONTRAST GIVEN. MC PRN (11:30)
--- NOTE | 2021-07-26 11:42 | RAD ---
Exam Date: 07/26/2021 11:[address] ABDOMEN+PELVIS W Indication: Reason: Left-sided abdominal pain / Spl. Instructions: IV omni 300 75 mls / History: . TECHNIQUE: CT examination of the abdomen and pelvis was performed following the administration of no nionic intravenous contrast. One or more of the following dose reduction techniques were utilized: *Automated exposure control (AEC) *Adjustment of mA and/or kV according to patient size *Use of iterative reconstruction technique *CT scan done according to ALARA, or ALARA/IMAGE GENTLY FINDINGS: The visualized lung bases are clear. There is a 5 mm calculus at the left ureterovesicular junction resulting in mild left hydroureteronep hrosis. Bilateral nonobstructing renal calculi are noted, the largest measuring 2 mm on the right an d 7 mm on the left. No right hydronephrosis. The liver, gallbladder, spleen, pancreas, adrenal glands and kidneys are otherwise normal. Urinary bladder is normal in appearance. There is no bowel obstruction or inflammation. The appendix is normal. Mild atherosclerotic calcifications are seen. No lymphadenopathy or ascites is seen. Degenerative changes are seen in the spine. IMPRESSION: 5 mm left UVJ calculus resulting in mild left hydroureteronephrosis. Bilateral nonobstructing renal calculi noted. No right hydronephrosis. Electronically signed by: Jez Miller MD (07/26/2021 11:39 AM) [id number]
[2021-07-26 11:48] LABS: BILIRUBIN,URINE NEGATIVE (NEG); CLARITY,URINE CLEAR; COLOR,URINE YELLOW; NITRITE,URINE NEGATIVE (NEG); PH,URINE 7.5 (<5.0-8.0); PROTEIN,URINE NEGATIVE (NEG-TRACE); UROBILINOGEN,URINE 0.2 mg/dL (0.2 mg/dL)
[2021-07-26] MEDS ORDERED: TAMS0.4C97 PO (11:59)
[2021-07-26] MEDS ORDERED: OXYC1TAB15 PO (11:59)
[2021-07-26 12:30] VITALS: BP 127/58
[2021-07-26 13:01] LABS: BACTERIA,URINE 0 /HPF (0-FEW); WBC,URINE 0 /HPF (0-4)
== END 2021-07-26 12:55 | disposition home or self-care (01) ==
LOC: ER 08:19
DX: N13.2 Hydronephrosis with renal and ureteral calculous obstruction (principal); K21.9 Gastro-esophageal reflux disease without esophagitis; Z87.440 Personal history of urinary (tract) infections; Z90.710 Acquired absence of both cervix and uterus; Z90.722 Acquired absence of ovaries, bilateral; Z88.2 Allergy status to sulfonamides; Z88.5 Allergy status to narcotic agent
CPT/HCPCS: 36415; 74177; 80053; 81001; 83690; 85025; 96361; 96374; 96376; 99285; J2270; J7030; Q9967

== ENCOUNTER 2021-07-28 20:22 | Inpatient (IN) | payer OTHER ==
[~2021-07-28] VITALS: Ht 170.2 cm; Wt 83.1 kg
[~2021-07-28 20:22] MED LIST changes: +TAMS0.4C97 PO
--- NOTE | 2021-07-28 21:06 | PHYS DOC ---
Past Medical History Past Medical History: GERD, UTI Past Surgical History: Hysterectomy, Oophorectomy Additional Past Surgical Histo: ORIF L HUMERUS, R HAND REVACULARIZATION Smoking Status: Never Smoker Alcohol Use: None Drug Use: None General Adult EDM: Chief Complaint: FLANK PAIN HPI: HPI: Patient is a 56 year old female who presents with persistent left flank pain. She was seen 2 days ago here and was diagnosed with a 5 mm proximal left ureteral stone with hydronephrosis. She has a history of kidney stones. She reports continued pain despite taking Percocet. She denies nausea or vomiting. She denies anorexia. She denies fevers or chills. She denies any acute injury or trauma. She does report the pain radiates down to her left mid and lower abdomen. She denies gross hematuria. She does reports having some urinary frequency and mild dysuria. She is able to eat and drink without difficulty. She saw her PCP in the office yesterday, and apparently discussion was had about possibly admitting her to the hospital for pain control. She was referred for outpatient neurology follow-up, but she reports that there was a prior authorization required to see urology, so she has not been able to do that yet. She reports that she feels like she has swelling inside of her flank and fears that she can essentially feel the hydronephrosis worsening. Review of Systems: Review of Systems: Constitutional: Denies fever or chills. [] Respiratory: Denies cough or shortness of breath. [] Cardiovascular: Denies chest pain or edema. [] GI: Left flank pain, left abdominal pain, denies nausea, vomiting, diarrhea, constipation : Shaka frequency and mild urgency and dysuria. No gross hematuria. Musculoskeletal: Flank pain Integument: Denies rash. [] Neurologic: Denies headache, focal weakness or sensory changes. [] Psychiatric: Denies depression or anxiety. [] Heart Score: C/O Chest Pain: No Risk Factors: Risk Factors: DM, Current or recent (<one month) smoker, HTN, HLP, family history of CAD, obesity. Risk Scores: Score 0 - 3: 2.5% MACE over next 6 weeks - Discharge Home Score 4 - 6: 20.3% MACE over next 6 weeks - Admit for Clinical Observation Score 7 - 10: 72.7% MACE over next 6 weeks - Early Invasive Strategies Allergies: Allergies: Allergies Coded Allergies Type Severity Reaction Last Updated Verified Sulfa (Sulfonamide Antibiotics) Allergy Intermediate Hives 07/26/21 Yes hydrocodone Adverse Reaction Intermediate Nausea and Vomiting 07/26/21 Yes Physical Exam: PE: Constitutional: Well developed, well nourished, no acute distress, non-toxic appearance. [] HENT: Normocephalic, atraumatic Eyes: Conjunctiva normal, no discharge. [] Neck: Normal range of motion, no tenderness, supple, no stridor. [] Cardiovascular:Heart rate regular rhythm, +2 radial and +2 posterior tibial pulses bilateral Lungs & Thorax: Bilateral breath sounds clear to auscultation [] Abdomen: Abdomen is soft, nondistended, mild left mid abdominal and suprapubic tenderness, mild voluntary guarding, no rebound tenderness, mild left CVA tender ness. No flank or abdominal ecchymoses. No palpable pulsatile mass. No audible bruit. Normal bowel sounds noted. No palpable masses organomegaly Skin: Warm, dry, no erythema, no rash. No jaundice. Back: No tenderness, mild left CVA tenderness Extremities: No tenderness, no cyanosis, no clubbing, ROM intact, no edema, no calf tenderness Neurologic: He is awake, alert, oriented, ambulatory to steady gait, grossly normal motor and grossly normal sensory function, speech is clear and fluent, no facial asymmetry noted Psychologic: Affect is flat EKG: EKG: [] Radiology/Procedures: Radiology/Procedures: [] Course & Med Decision Making: Course & Med Decision Making Pertinent Labs and Imaging studies reviewed. (See chart for details) IV fluids are given. IV morphine and Zofran and IV Toradol are given. She is resting comfortably. She has a nonsurgical abdominal exam. I reviewed the patient's previous ED note, CT findings, and laboratory exams. Her UA does not demonstrate any obvious source of infection. The patient reported that she feels that she might have had trace bacteria on her UA today, and I assured her that there is no evidence of any documented bacteriuria, she has no significant pyuria, nitrite and leukocyte negative, manifest no evidence of urinary tract infection. I did discuss all of the findings, differential diagnosis and plan of care with her. I explained that ureteral/renal colic is likely was causing her pain, as opposed to her feeling like her hydronephrosis is the sole source of her pain. I asked her if she feels that she requires admission to the hospital for pain control and she reports that she does. Her primary care doctor is Dr. Lund, I contacted him for admission. The patient requested that I contact urology, though I did explain that urology will not be coming in tonight to perform any procedures or intervention on her at this time. I did discuss this with Dr. Hoffman, the on-call urologist. The patient will be seen by them tomorrow, consult is placed. She is resting comfortably, she reports improvement in pain. Dragon Disclaimer: Dragon Disclaimer: This electronic medical record was generated, in whole or in part, using a voice recognition dictation system. Departure Departure Impression: Primary Impression: Left ureteral stone Additional Impression: Renal colic Disposition: ADMITTED INPATIENT Admitting Physician: Joseph Lund Condition: STABLE Referrals: JOSEPH LUND MD (PCP) EMILI BAEZ DO Jul 28, 2021 21:06
[2021-07-28 21:29] LABS: BASO # 0.1 x10^3/uL (0.0-0.2); BASO % 1 % (0-3); EOS # 0.3 x10^3/uL (0.0-0.7); EOS % 3 % (0-3); HEMATOCRIT 42.3 % (36.0-47.0); HEMOGLOBIN 14.1 g/dL (12.0-15.5); LYMPH # 1.7 x10^3/uL (1.0-4.8); LYMPH % 16 % (24-48); MEAN CORPUSCULAR HEMOGLOBIN 30 pg (25-35); MEAN CORPUSCULAR HGB CONC 33 g/dL (31-37); MEAN CORPUSCULAR VOLUME 90 fL (79-100); MONO # 0.9 x10^3/uL (0.0-1.1); MONO % 9 % (0-9); NEUT # 7.5 x10^3/uL (1.8-7.7); NEUT % 71 % (31-73); PLATELET COUNT 203 x10^3/uL (140-400); RED BLOOD COUNT 4.68 x10^6/uL (3.50-5.40); WHITE BLOOD COUNT 10.4 x10^3/uL (4.0-11.0)
[2021-07-28] MEDS ORDERED: IV NORMAL SALINE 1000ML BAG 1,000 ML IV ONE ×2 (21:30→23:30)
[2021-07-28] MEDS ORDERED: MORPHINE SULFATE 4 MG/ML INJ. IVP ONE (21:30)
[2021-07-28] MEDS ORDERED: ONDANSETRON PF 4 MG/2 ML VIAL. IVP ONE (21:30)
[2021-07-28 21:38] LABS: CALCIUM 8.5 mg/dL (8.5-10.1); GFR 57.1; POTASSIUM 3.6 mmol/L (3.5-5.1)
[2021-07-28 21:41] LABS: BILIRUBIN,URINE NEGATIVE (NEG); CLARITY,URINE CLEAR; COLOR,URINE YELLOW; NITRITE,URINE NEGATIVE (NEG); PROTEIN,URINE NEGATIVE (NEG-TRACE); UROBILINOGEN,URINE 0.2 mg/dL (0.2 mg/dL)
[2021-07-28 21:44] LABS: ALBUMIN 3.9 g/dL (3.4-5.0); ALBUMIN/GLOBULIN RATIO 1.1 (1.0-1.7); TOTAL BILIRUBIN 0.6 mg/dL (0.2-1.0); TOTAL PROTEIN 7.5 g/dL (6.4-8.2)
[2021-07-28 21:51] LABS: BACTERIA,URINE 0 /HPF (0-FEW); WBC,URINE 0 /HPF (0-4)
[2021-07-28] MEDS ORDERED: KETOROLAC 15 MG/ML VIAL. IVP ONE (23:15)
[2021-07-28] MEDS ORDERED: KETOROLAC 30 MG/ML VIAL. IVP PRN (23:30)
[2021-07-28] MEDS ORDERED: oxyCODONE/APAP 5/325 1 TAB TABLET PO PRN (23:30)
[2021-07-28] MEDS ORDERED: ONDANSETRON PF 4 MG/2 ML VIAL. IVP PRN (23:30)
--- NOTE | 2021-07-29 01:15 | NUR ---
Admit from ER. C/o left flank and LLQ pain since Monday.
[2021-07-29] MEDS: MORPHINE SULFATE 4 MG/ML INJ. IVP PRN ×2 (01:49→08:26)
[2021-07-29] MEDS ORDERED: ESTRADIOL 0.01% VAGINAL CREAM 42.5GM TUBE. VG SCH (02:00)
--- NOTE | 2021-07-29 09:52 | PDOC2 ---
UROLOGY CONSULT DOS: DATE: 07/29/21 TIME: 09:40 Reason for Consult: UVJ stone Problems: (1) Flank pain, acute (2) Renal colic (3) Left ureteral stone HISTORY OF KIDNEY PROBLEMS: Yes Chief Complaint 56 year old female presented to the ER overnight with left flank pain. Describes the pain as persistent, sharp and radiating to her left pelvic area. Recently seen in the ER on 07/26/2021 for the same complaint. CT A/P done at that time showing a 5mm left UVJ stone with hydronephrosis. Patient states that she follows with Dr. Nguyen and was aware that she had kidney stones. At that time, she had just wanted to observe them as they were not of any issue. Denies any urological procedures in the past. Denies fever, chills, hematuria, dysuria, frequency, urgency, nausea, vomiting. ROS ROS: RESPIRATORY: Shortness of breath denies. Cough denies. UROLOGY: Denies blood in urine. Denies dysuria, frequency, urgency. Current Medications Current Medications Sodium Chloride 1,000 ml @ 1,000 mls/hr 1X ONCE IV Last administered on 07/28/21at 21:50; Start 07/28/21 at 21:30; Stop 07/28/21 at 22:29; Status DC Ondansetron HCl (Zofran) 4 mg 1X ONCE IVP Last administered on 07/28/21at 21:49; Start 07/28/21 at 21:30; Stop 07/28/21 at 21:31; Status DC Morphine Sulfate (Morphine Sulfate) 4 mg 1X ONCE IVP Last administered on 07/28/21at 21:50; Start 07/28/21 at 21:30; Stop 07/28/21 at 21:31; Status DC Ketorolac Tromethamine (Toradol 15mg Vial) 15 mg 1X ONCE IVP Last administered on 07/28/21at 23:15; Start 07/28/21 at 23:15; Stop 07/28/21 at 23:17; Status DC Ondansetron HCl (Zofran) 4 mg PRN Q8HRS PRN IVP NAUSEA/VOMITING; Start 07/28/21 at 23:30; Stop 07/29/21 at 23:29 Morphine Sulfate (Morphine Sulfate) 4 mg PRN Q2HR PRN IVP pain MOD/SEVERE Last administered on 07/29/21at 08:26; Start 07/28/21 at 23:30 Oxycodone/ Acetaminophen (Percocet 5/325) 1 tab PRN Q4HRS PRN PO pain MOD/SEVERE; Start 07/28/21 at 23:30 Ketorolac Tromethamine (Toradol 30mg Vial) 15 mg PRN Q6HRS PRN IVP INFLAMMATION/PAIN PREVENTION Last administered on 07/29/21at 07:31; Start 07/28/21 at 23:30; Stop 08/02/21 at 23:29 Sodium Chloride 1,000 ml @ 100 mls/hr 1X ONCE IV Last administered on 07/29/21at 07:35; Start 07/28/21 at 23:30; Stop 07/29/21 at 09:29; Status DC Estradiol (Estrace) 1 deyanira HS VG ; Start 07/29/21 at 02:00; Stop 07/29/21 at 08:33; Status DC Tamsulosin HCl (Flomax) 0.4 mg DAILY PO ; Start 07/30/21 at 09:00; Status UNV Cefazolin Sodium/ Dextrose 50 ml @ 100 mls/hr 1X PREOP PRN IV PRIOR TO PROCEDURE; Start 07/30/21 at 06:00; Stop 07/30/21 at 18:00; Status UNV Active Scripts Active Percocet 5-325 Mg Tablet (Oxycodone/Acetaminophen) 1 Each Tablet 1 Tab PO PRN Q6HRS PRN Flomax (Tamsulosin Hcl) 0.4 Mg Cap.er.24h 1 Cap PO DAILY 14 Days Reported Promethazine Hcl 25 Mg Tablet 1 Tab PO PRN Q6HRS PRN 2 Days Percocet 5-325 Mg Tablet (Oxycodone/Acetaminophen) 1 Each Tablet 1-2 Tab PO PRN Q4HRS PRN MDD 2 Tablet(s) 5 Days Vitamin D3 (Cholecalciferol (Vitamin D3)) 1,250 Mcg Capsule 2,000 Units PO DAILY Emergen-C 1,000 mg Packet (Ascorbic Acid/Multivit-Min) 1,000 Mg Effpowdpkt 1,000 Mg PO DAILY Estrace (Estradiol) 42.5 Gm Cream.appl 200 Mg VG HS [Estrogen/Progrest] 1 Deyanira PO/SL HS [Testosterone] 50 Mg INJ Q2WKS Omeprazole 20 Mg Capsule. 1 Cap PO DAILY Allergies: Coded Allergies: Sulfa (Sulfonamide Antibiotics) (Verified Allergy, Intermediate, Hives, 07/26/21) hydrocodone (Verified Adverse Reaction, Intermediate, Nausea and Vomiting, 07/26/21) Physical Examination PHYSICAL EXAMINATION: GENERAL: Gen. appearance: No acute distress. Mood/affect: Pleasant. HEENT: Head: Normocephalic, atraumatic. Airway Impairment: No. CHEST: Shape and expansion: Normal. Expansion: Normal. SKIN: General: Warm. Color: Good. GENITOURINARY:External genitalia - wnl. NEUROLOGICAL: Mental status: Alert and oriented 3. Language: Normal. : CVA tenderness on left VITALS Vital Signs Date Time Temp Pulse Resp B/P (MAP) Pulse Ox O2 Delivery O2 Flow Rate FiO2 07/29/21 08:26 96 07/29/21 03:17 20 07/29/21 01:54 87 136/85 (102) Room Air 07/28/21 20:55 98.2 98.2 Labs Laboratory Tests Test 07/28/21 20:55 07/28/21 21:20 White Blood Count 10.4 x10^3/uL (4.0-11.0) Red Blood Count 4.68 x10^6/uL (3.50-5.40) Hemoglobin 14.1 g/dL (12.0-15.5) Hematocrit 42.3 % (36.0-47.0) Mean Corpuscular Volume 90 fL (79-100) Mean Corpuscular Hemoglobin 30 pg (25-35) Mean Corpuscular Hemoglobin Concent 33 g/dL (31-37) Red Cell Distribution Width 13.0 % (11.5-14.5) Platelet Count 203 x10^3/uL (140-400) Neutrophils (%) (Auto) 71 % (31-73) Lymphocytes (%) (Auto) 16 % (24-48) Monocytes (%) (Auto) 9 % (0-9) Eosinophils (%) (Auto) 3 % (0-3) Basophils (%) (Auto) 1 % (0-3) Neutrophils # (Auto) 7.5 x10^3/uL (1.8-7.7) Lymphocytes # (Auto) 1.7 x10^3/uL (1.0-4.8) Monocytes # (Auto) 0.9 x10^3/uL (0.0-1.1) Eosinophils # (Auto) 0.3 x10^3/uL (0.0-0.7) Basophils # (Auto) 0.1 x10^3/uL (0.0-0.2) Sodium Level 135 mmol/L (136-145) Potassium Level 3.6 mmol/L (3.5-5.1) Chloride Level 101 mmol/L (98-107) Carbon Dioxide Level 28 mmol/L (21-32) Anion Gap 6 (6-14) Blood Urea Nitrogen 27 mg/dL (7-20) Creatinine 1.0 mg/dL (0.6-1.0) Estimated GFR (Cockcroft-Gault) 57.1 BUN/Creatinine Ratio 27 (6-20) Glucose Level 100 mg/dL (70-99) Calcium Level 8.5 mg/dL (8.5-10.1) Total Bilirubin 0.6 mg/dL (0.2-1.0) Aspartate Amino Transf (AST/SGOT) 22 U/L (15-37) Alanine Aminotransferase (ALT/SGPT) 29 U/L (14-59) Alkaline Phosphatase 83 U/L (46-116) Total Protein 7.5 g/dL (6.4-8.2) Albumin 3.9 g/dL (3.4-5.0) Albumin/Globulin Ratio 1.1 (1.0-1.7) Lipase 69 U/L (73-393) Urine Collection Type Unknown Urine Color Yellow Urine Clarity Clear Urine pH 7.0 (<5.0-8.0) Urine Specific [place] 1.020 (1.000-1.030) Urine Protein Negative mg/dL (NEG-TRACE) Urine Glucose (UA) Negative mg/dL (NEG) Urine Ketones (Stick) Negative mg/dL (NEG) Urine Blood Trace (NEG) Urine Nitrite Negative (NEG) Urine Bilirubin Negative (NEG) Urine Urobilinogen Dipstick 0.2 mg/dL (0.2 mg/dL) Urine Leukocyte Esterase Negative (NEG) Urine RBC 1-2 /HPF (0-2) Urine WBC 0 /HPF (0-4) Urine Squamous Epithelial Cells Few /LPF Urine Bacteria 0 /HPF (0-FEW) Laboratory Tests Test 07/28/21 20:55 07/28/21 21:20 White Blood Count 10.4 x10^3/uL (4.0-11.0) Red Blood Count 4.68 x10^6/uL (3.50-5.40) Hemoglobin 14.1 g/dL (12.0-15.5) Hematocrit 42.3 % (36.0-47.0) Mean Corpuscular Volume 90 fL (79-100) Mean Corpuscular Hemoglobin 30 pg (25-35) Mean Corpuscular Hemoglobin Concent 33 g/dL (31-37) Red Cell Distribution Width 13.0 % (11.5-14.5) Platelet Count 203 x10^3/uL (140-400) Neutrophils (%) (Auto) 71 % (31-73) Lymphocytes (%) (Auto) 16 % (24-48) Monocytes (%) (Auto) 9 % (0-9) Eosinophils (%) (Auto) 3 % (0-3) Basophils (%) (Auto) 1 % (0-3) Neutrophils # (Auto) 7.5 x10^3/uL (1.8-7.7) Lymphocytes # (Auto) 1.7 x10^3/uL (1.0-4.8) Monocytes # (Auto) 0.9 x10^3/uL (0.0-1.1) Eosinophils # (Auto) 0.3 x10^3/uL (0.0-0.7) Basophils # (Auto) 0.1 x10^3/uL (0.0-0.2) Sodium Level 135 mmol/L (136-145) Potassium Level 3.6 mmol/L (3.5-5.1) Chloride Level 101 mmol/L (98-107) Carbon Dioxide Level 28 mmol/L (21-32) Anion Gap 6 (6-14) Blood Urea Nitrogen 27 mg/dL (7-20) Creatinine 1.0 mg/dL (0.6-1.0) Estimated GFR (Cockcroft-Gault) 57.1 BUN/Creatinine Ratio 27 (6-20) Glucose Level 100 mg/dL (70-99) Calcium Level 8.5 mg/dL (8.5-10.1) Total Bilirubin 0.6 mg/dL (0.2-1.0) Aspartate Amino Transf (AST/SGOT) 22 U/L (15-37) Alanine Aminotransferase (ALT/SGPT) 29 U/L (14-59) Alkaline Phosphatase 83 U/L (46-116) Total Protein 7.5 g/dL (6.4-8.2) Albumin 3.9 g/dL (3.4-5.0) Albumin/Globulin Ratio 1.1 (1.0-1.7) Lipase 69 U/L (73-393) Urine Collection Type Unknown Urine Color Yellow Urine Clarity Clear Urine pH 7.0 (<5.0-8.0) Urine Specific [place] 1.020 (1.000-1.030) Urine Protein Negative mg/dL (NEG-TRACE) Urine Glucose (UA) Negative mg/dL (NEG) Urine Ketones (Stick) Negative mg/dL (NEG) Urine Blood Trace (NEG) Urine Nitrite Negative (NEG) Urine Bilirubin Negative (NEG) Urine Urobilinogen Dipstick 0.2 mg/dL (0.2 mg/dL) Urine Leukocyte Esterase Negative (NEG) Urine RBC 1-2 /HPF (0-2) Urine WBC 0 /HPF (0-4) Urine Squamous Epithelial Cells Few /LPF Urine Bacteria 0 /HPF (0-FEW) Assessment/Plan ---5mm UVJ stone Tamsulosin 0.4mg daily. Strain urine. Will get KUB for stone location as CT A/P was done three days ago. Pain management per primary. Discussed options of observation vs ESWL vs ureteroscopy. As pain is not controlled, patient opted for ureteroscopy. Discussed risks including bleeding, infection, injury to adjacent organs, and risks of anesthesia. Patient is on the OR schedule 07/30/2021 at 1300 for cystoscopy, left ureteroscopy with laser and stent placement with Dr. Hoffman. SHIRIN Ancef Preop NPO at midnight. D/w nurse. LONG CARROLL APRN Jul 29, 2021 09:52
--- NOTE | 2021-07-29 10:45 | NUR ---
SW following. Discussed with RN, pt from home, room air, NPO, independent. Urology following. RN advised no SW needs at this time. SW will continue to follow.
--- NOTE | 2021-07-29 11:24 | RAD ---
XR ABDOMEN 1V History: Reason: left UVJ stone / Spl. Instructions: / History: Technique: Supine view the abdomen. Comparison: CT July 26, 2021 Findings: Mild small bowel gas. Air and stool scattered throughout the colon. Moderate proximal colonic stool b urden. Bilateral nephrolithiasis. Calculus projecting over the left pelvis measures 4 mm may relate t o previously seen ureteral calcification. There is adjacent phlebolith. Moderate lumbar spondylosis. Impression: 1. Calculus projecting over the left pelvis may relate to previously seen ureterovesical junction ca lculus, similar location compared to prior. 2. Bilateral nephrolithiasis. Electronically signed by: Jamie Nieves DO (07/29/2021 11:22 AM) [id number]
--- NOTE | 2021-07-29 11:53 | PDOC ---
Provider Note Date of Service: DATE: 07/29/21 TIME: 11:52 Provider Note history and physical dictated # [id number] Justifications for Admission Other Justification JOSEPH MCCARTHY MD Jul 29, 2021 11:53
[2021-07-29] MEDS ORDERED: ONDANSETRON PF 4 MG/2 ML VIAL. IVP PRN (12:00)
[2021-07-29] MEDS ORDERED: IV NORMAL SALINE 1000ML BAG 1,000 ML IV SCH (12:00)
[2021-07-29] MEDS ORDERED: ACETAMINOPHEN 325 MG TABLET. PO PRN (12:00)
--- NOTE | 2021-07-29 12:35 | EKG ---
[facility] [address] [place] [address] Test Date: 2021-07-29 Test Time: 12:33:15 Pat Name: GUNNAR MICHAELS Department: Room: 420 Gender: F Bilingual Medical Receptionist: RAOUL : 1965 Requested By: JOSEPH MCCARTHY Order Number: [id number] Reading MD: Measurements Intervals [place] Rate: 89 P: 54 MO: 168 QRS: 66 QRSD: 92 T: 41 QT: 368 QTc: 449 Interpretive Statements SINUS RHYTHM NORMAL ECG RI6.02 Compared to ECG 03/20/2015 18:48:40 No significant changes
--- NOTE | 2021-07-29 14:05 | NUR ---
Patient passed approximately 4mm round dark stone in urine.
--- NOTE | 2021-07-29 14:25 | RAD ---
AP and Lateral Views of the Chest 07/29/2021 2:18 PM Indication: Reason: admitting/CYSTO W/URETEROSCOPY LASER, STENT PLACEMENT LEFT SIDE Comparison: None Findings: There is no focal consolidation or infiltrate identified. The cardiomediastinal silhouette is within normal limits. There is no evidence of pneumothorax or pleural effusion. No acute osseous a bnormalities are identified. Impression: No evidence of acute cardiopulmonary process. Electronically signed by: Harjinder Suero MD (07/29/2021 2:23 PM) [id number]
[2021-07-29 14:45] VITALS: BP 149/81
--- NOTE | 2021-07-29 15:00 | HP ---
DATE OF SERVICE: 07/29/2021 ADMIT DATE: 07/28/2021 LOCATION: She is in room 420. HISTORY OF PRESENT ILLNESS: The patient is a 56-year-old white female who went to the [facility] Emergency Room on 07/26/2021 with left-sided flank pain and had a CAT scan angiogram of the abdomen and pelvis which showed a 5 mm left ureterovesical junction stone with hydronephrosis. The patient denies any fever, nausea or vomiting and was sent home with Percocet p.r.n. and was started on tamsulosin daily. She continued to have left-sided flank pain and was seen in the office on 07/28/2021 and she was to be referred to a urologist; however, her pain worsened and she sought help at the [facility] Emergency Room where a KUB showed a calcification in the left side of the abdomen, similar to the location of her previous kidney stone, the other day noted on CAT scan and she was subsequently admitted to the hospital and treated with IV morphine and started on IV fluids. She has been seen by the Urology service this morning and she is scheduled to have a cystoscopy with the ureteroscope and a retrograde study and placement of a ureteral stent. She denies any fever. She had some chills associated with pain. Denies any nausea or vomiting. She again is admitted for further evaluation and treatment of her renal colic and kidney stone. She does have a previous history of kidney stones, followed by her urologist and they were nonobstructing. ALLERGIES: Include SULFA AND HYDROCODONE. MEDICATIONS: Prior to admission include omeprazole 20 mg every day, Percocet 5/325 one every 4 hours p.r.n., tamsulosin 0.4 mg every day. PAST MEDICAL HISTORY: Significant for left rotator cuff repair in 09/2020. She had an open reduction and internal fixation for left humerus fracture. She had a laparoscopic hysterectomy and right salpingo-oophorectomy, had a colonoscopy which showed diverticulosis and she has gastroesophageal reflux disease. There is no history of diabetes mellitus, hypertension or hyperlipidemia. SOCIAL HISTORY: She has 3 drinks a week, does not smoke cigarettes. Works as a nurse. FAMILY HISTORY: Noncontributory. REVIEW OF SYSTEMS: CONSTITUTIONAL: She denies any fever or sweats, but had some chills when she had flank pain. CARDIOVASCULAR: No chest pain. PULMONARY: No cough or shortness of breath. GASTROINTESTINAL: No diarrhea. ENDOCRINE: No diabetes. SKIN: No rashes. Rest of review of systems reviewed and are negative except as stated in history of present illness. PHYSICAL EXAMINATION: VITAL SIGNS: Apical pulse is regular at 80, respiratory rate is 18. She is afebrile and blood pressure was okay. EYES: Gaze is conjugate. NECK: Supple. HEART: Reveals an S1, S2. There is no S3 or murmur. LUNGS: Clear. ABDOMEN: Soft. She has got some tenderness in the left lower quadrant and left flank area. EXTREMITIES: Lower extremities without edema. SKIN: No rashes. BACK: She does have some CVA tenderness on the left side. LABORATORY DATA: CBC and BMP were unremarkable. Urinalysis did not have any blood recall, but she did have it in the emergency room on 07/26, she had microscopic hematuria. ASSESSMENT: 1. Left kidney stone. 2. Left renal colic. 3. Gastroesophageal reflux disease. PLAN: To proceed with cystoscopy and ureteroscopy and removal of stone and placement of a stent. Continue with IV normal saline. We will repeat labs tomorrow and get an EKG and a chest x-ray and continue with her analgesics, morphine sulfate IV or Protonix p.o. p.r.n. Continue with the tamsulosin. VIKRAM DR: Hosea TID: [id number]
--- NOTE | 2021-07-29 16:00 | NUR ---
Marlen with urology notified that patient passed 5mm stone in urine and would like to discharge home. Urology ok with patient discharging and following up in [address] Lund notified and gave order to discharge patient and follow up with him in 1 week.
--- NOTE | 2021-07-29 16:37 | NUR ---
Discharge Note: GUNNAR MICHAELS [address] [place] [address] Discharge instructions and discharge home medications reviewed with Patient and a copy given. All questions have been answered and understanding verbalized. The following instructions and handouts were given: Diet, activity, medication list and follow up instructions provided to patient. Discontinued lines and drains: Peripheral IV discontinued and catheter intact. Patient discharged to Home or Self Care with Family Member via Ambulated
[2021-07-30] MEDS ORDERED: MORPHINE SULFATE 2 MG/ML INJ. IVP PRN (06:00)
[2021-07-30] MEDS ORDERED: HYDROmorphone 2 MG/ML INJ. IVP PRN (06:00)
[2021-07-30] MEDS ORDERED: IV RINGERS,LACTATED 1000ML 1,000 ML IV SCH (06:00)
[2021-07-30] MEDS ORDERED: PROCHLORPERAZINE 10 MG/2 ML VIAL. IVP PRN (06:00)
[2021-07-30] MEDS ORDERED: fentaNYL PF VIAL 100 MCG/2 ML VIAL IVP PRN ×2 (06:00)
[2021-07-30] MEDS ORDERED: TAMSULOSIN 0.4 MG CAP.ER.24H. PO SCH (09:00)
--- NOTE | 2021-07-30 10:46 | PDOC ---
Provider Note Date of Service: DATE: 07/30/21 TIME: 10:45 Provider Note discharge summary dictated # [id number] Justifications for Admission Other Justification JOSEPH MCCARTHY MD Jul 30, 2021 10:46
--- NOTE | 2021-07-30 11:16 | DS ---
DATE OF DISCHARGE: 07/29/2021 VENDING ATTENDANT: Jaqui Hoffman MD FINAL DIAGNOSES: 1. Left ureteral kidney stone. 2. Left renal colic. 3. Gastroesophageal reflux disease. HOSPITAL COURSE: The patient is a 56-year-old white female who went to the [facility] Emergency Room on 07/26/2021 with left renal colic. A CAT scan, angiogram of the abdomen and pelvis showed a 5 mm kidney stone in the left ureterovesical junction with hydronephrosis. She had no fever, nausea or vomiting and was sent home on Percocet 5/325 mg 1 every 4 hours p.r.n. and tamsulosin 0.4 mg every day. She continued to have left-sided flank pain, saw me in the office on 07/28/2021. She was to be referred to a urologist; however, her pain persisted and she sought help at the [facility] Emergency Room on 07/28/2021 and a KUB showed a calcification on the left side of the abdomen, where her previous kidney stone was located. The patient was admitted to the hospital, treated with IV fluids and IV morphine for pain control. She was seen by the Urology nurse practitioner and was to have a cystoscopy with a ureteroscope laser treatment and a ureteral stent placed the following day. However, yesterday, she did pass the kidney stone and was sent home. So, she was told to drink about 2 liters of fluids a day and avoid salty foods. She will follow up in the office and see Dr. Lund next week. TORITO DR: Hosea TID: [id number]
== END 2021-07-29 16:35 | disposition home or self-care (01) | DRG 694 ==
LOC: ER 20:22 → 4 NORTH 23:08 → OBSVTOIN 07-29 11:57
PROVIDERS: ADMIT Internal Medicine; ATTEND Internal Medicine
DX: N13.2 Hydronephrosis with renal and ureteral calculous obstruction (principal); K21.9 Gastro-esophageal reflux disease without esophagitis; Z90.710 Acquired absence of both cervix and uterus; K57.90 Diverticulosis of intestine, part unspecified, without perforation or abscess without bleeding; Z87.440 Personal history of urinary (tract) infections; Z90.721 Acquired absence of ovaries, unilateral; Z88.5 Allergy status to narcotic agent; Z88.2 Allergy status to sulfonamides
CPT/HCPCS: 36415; 71046; 74018; 80053; 81001; 83690; 85025; 93005; G0378; G0379; J1885; J2270; J2405; J7030

== ENCOUNTER → 2021-08-26 | Outpatient (CLI) | payer OTHER ==
[2021-07-29 14:45] VITALS: BP 149/81
--- NOTE | 2021-08-26 13:20 | RAD ---
PQRS Compliance Statement: One or more of the following individualized dose reduction techniques were utilized for this examinat ion: 1. Automated exposure control 2. Adjustment of the mA and/or kV according to patient size 3. Use of iterative reconstruction technique CT ABDOMEN+PELVIS WO Clinical Indication: Reason: LEFT RENAL STONE, ureteral calculus. Comparison: CT abdomen and pelvis with contrast July 26, 2021. Technique: Helical CT imaging of the abdomen and pelvis is performed without IV or oral contrast. Findings: Lung bases essentially clear. Cardiac size normal. Probable normal variant Francisco lobe. The gallbladder, spleen, pancreas, adrenal glands, and abdominal aorta are normal. There is no right hydronephrosis. There are approximately 3 calculi measuring 2 mm in the right kidne y. There are at least 9 left renal calculi, largest measures 7 mm. Cortical scarring of the lateral l eft kidney is unchanged. Mild left hydroureteronephrosis has resolved, calculus at the ureterovesicul ar junction is no longer present. Bladder calculus is not seen. Stomach unremarkable. There is a 9 mm hyperdensity in a small bowel loop that may be a pill. There is no dilated small bowel. The appendix is normal. Minimal sigmoid colon diverticulosis. No colon wall thickening. No abdominal adenopathy or free fluid. No urinary bladder wall thickening. Hysterectomy. No pelvic free fluid. Minimal right convexity thoracolumbar scoliosis. IMPRESSION: 1. Resolution of calculus at the left ureterovesicular junction and obstructive uropathy. 2. Bilateral nonobstructing renal calculi. 3. Minimal sigmoid colon diverticulosis. Electronically signed by: Mohsen Woodruff MD (08/26/2021 1:18 PM) [facility]
[2021-08-27 08:18] LABS: CALCIUM PTH 9.3 mg/dL (8.7-10.2); CREATININE PTH 0.71 mg/dL (0.57-1.00); PHOSPHORUS PTH 2.5 mg/dL (3.0-4.3); PTH INTACT 37 pg/mL (15-65)
== END ==
LOC: LAB 11:07
PROVIDERS: ATTEND Urology
DX: K57.30 Diverticulosis of large intestine without perforation or abscess without bleeding (principal); N20.2 Calculus of kidney with calculus of ureter; N28.89 Other specified disorders of kidney and ureter
CPT/HCPCS: 36415; 74176; 83970; 84550